=== PATIENT | male | born 1985 | race Caucasian/White ===

== ENCOUNTER 2020-02-10 13:17 | Day surgery (SDC) | payer BC ==
[2020-02-10] MEDS ORDERED: Lactated Ringers 1,000 ML IV SCH (13:45)
[2020-02-10] MEDS ORDERED: cefOXitin 2 GM in Premix Bag 1 BAG IV ONE (13:46)
--- NOTE | 2020-02-10 14:06 | PCM.SN.2 ---
- Free Text/Narrative Note: pt seen, chart reviewed; acute appendicitis, proceed to surg, rb dw pt re bleeding/infection/damage to nearby organs/postop course; pt concur and proceed ; [id number]
[2020-02-10] MEDS ORDERED: Bupivacaine 0.25%/EPINEPHrine 1:200,000 10 ML SDV ONE (14:29)
[2020-02-10] MEDS ORDERED: Octyl 2-Cyanoacrylate 1 Tube ONE (14:29)
--- NOTE | 2020-02-10 14:42 | PCM.PREANE ---
Preanesthetic Assessment - Anesthesia/Transfusion/Family Hx Anesthesia History: Prior Anesthesia Without Reaction (dental extractions only, no hx GA) Family History of Anesthesia Reaction: No Transfusion History: No Prior Transfusion(s) - Review of Systems General: No Symptoms Pulmonary: No Symptoms Cardiovascular: No Symptoms Gastrointestinal: Abdominal Pain Neurological: No Symptoms Other: Reports: None - Physical Assessment NPO Status Date: 02/09/20 Vital Signs: Last Vital Signs Temp 97.6 F 02/10/20 13:32 Pulse 86 02/10/20 14:22 Resp 18 02/10/20 14:22 BP 126/89 02/10/20 14:22 Pulse Ox 98 02/10/20 14:22 Height: 5 ft 11 in Weight: 141.974 kg ASA Class: 2E Mental Status: Alert & Oriented x3 Airway Class: Mallampati = 1 Dentition: Reports: Normal Dentition ROM/Head Extension: Full Lungs: Clear to Auscultation, Normal Respiratory Effort Cardiovascular: Regular Rate, Regular Rhythm - Allergies Allergies/Adverse Reactions: Allergies Allergy/AdvReac Type Severity Reaction Status Date / Time No Known Allergies Allergy Verified 02/10/20 14:38 - Blood Blood Available: No - Anesthesia Plan Pre-Op Medication Ordered: None - Acknowledgements Anesthesia Type Planned: General Anesthesia Pt an Appropriate Candidate for the Planned Anesthesia: Yes Alternatives and Risks of Anesthesia Discussed w Pt/Guardian: Yes Pt/Guardian Understands and Agrees with Anesthesia Plan: Yes Additional Comments: PMH: Morbid obesity (BMI=43), on zoloft PLAN: GET PreAnesthesia Questionnaire HEENT History: Reports: Other (See Below) Other HEENT History: has a dental bridge but doesn't wear, wears glasses Genitourinary History: Reports: Renal Calculus Other Genitourinary History: hx of passing 1 stone Musculoskeletal History: Reports: Fracture Other Musculoskeletal History: hx of fx finger Neurological History: Reports: Concussion, Migraines Other Neuro History: hx of migraine 5 years ago Psychiatric History: Reports: Anxiety Endocrine/Metabolic History: Reports: Obesity/BMI 30+ - Past Surgical History Head Surgeries/Procedures: Reports: None HEENT Surgical History: Reports: Oral Surgery Other HEENT Surgeries/Procedures: wisdom teeth - SUBSTANCE USE Smoking Status *Q: Current Every Day Smoker Tobacco Use Within Last Twelve Months: Snuff/Dip Recreational Drug Use History: No - HOME MEDS Home Medications: Home Meds Sertraline [Zoloft] PO DAILY 02/10/20 [History] - CURRENT (IN HOUSE) MEDS Current Meds: Current Medications Lactated Ringer's (Ringers, Lactated) 1,000 mls @ 125 mls/hr IV ASD[facility]RECTED [facility] Last Admin: 02/10/20 13:44 Dose: 125 mls/hr Discontinued Medications Bupivacaine HCl/Epinephrine Bitart (Marcaine 0.25%/Epinephrine 1:200,000) Confirm Administered Dose 20 ml .ROUTE .STK-MED ONE Stop: 02/10/20 14:30 Cefoxitin Sodium 2 gm/ Premix 50 mls @ 100 mls/hr IV ONETIME ONE Stop: 02/10/20 14:15 Octyl Cyanoacrylate (Dermabond Advance) Confirm Administered Dose 1 applic .ROUTE .STK-MED ONE Stop: 02/10/20 14:30
[2020-02-10] MEDS ORDERED: Glycopyrrolate 0.2 MG/ML SDV ONE (15:18)
[2020-02-10] MEDS ORDERED: Ketorolac 30 MG/ML SDV ONE (15:18)
[2020-02-10] MEDS ORDERED: Midazolam 1 MG/ML 2 ML SDV ONE (15:18)
[2020-02-10] MEDS ORDERED: Ondansetron 4 MG/2 ML SDV ONE (15:18)
[2020-02-10] MEDS ORDERED: Propofol 200 MG/20 ML SDV ONE (15:18)
[2020-02-10] MEDS ORDERED: Rocuronium 100 MG/10 ML Syringe ONE (15:19)
[2020-02-10] MEDS ORDERED: HYDROmorphone 2 MG/ML Syringe ONE (15:23)
[2020-02-10] MEDS ORDERED: fentaNYL 250 MCG/5 ML SDV ONE (15:25)
[2020-02-10] MEDS ORDERED: Sugammadex Sodium 200 MG/2 ML VIAL ONE (15:27)
[2020-02-10] MEDS ORDERED: Dexamethasone 4 MG/ML 5 ML MDV ONE (15:42)
[2020-02-10] MEDS ORDERED: ePHEDrine 50 MG/ML SDV ONE (16:18)
--- NOTE | 2020-02-10 17:27 | PCM.OPNOTE ---
- General Post-Op/Procedure Note Date of Surgery/Procedure: 02/10/20 Operative Procedure(s): lap appy w surgicell placement Findings: appendix dilated, w exudate, engulfed by surrounding structures; gross perf not observed;[id number] Pre Op Diagnosis: acute appy Post-Op Diagnosis: Same Anesthesia Technique: General ET Tube Primary Surgeon: Patel Aquino Pathology: sent Complications: None Condition: Stable
[2020-02-10] MEDS ORDERED: Morphine 4 MG/ML Syringe IVPUSH PRN (17:28)
[2020-02-10] MEDS ORDERED: Ondansetron 4 MG/2 ML SDV IVPUSH PRN (17:29)
--- NOTE | 2020-02-10 18:14 | PCM.POSTAN ---
POST ANESTHESIA ASSESSMENT - MENTAL STATUS Mental Status: Alert - VITAL SIGNS Vital Signs: Last Vital Signs Temp 36.6 C 02/10/20 17:24 Pulse 82 02/10/20 18:08 Resp 11 L 02/10/20 18:08 BP 121/65 02/10/20 18:08 Pulse Ox 95 02/10/20 18:08 - RESPIRATORY Respiratory Status: Respiratory Rate WNL, O2 Saturation Stable, Supplemental Oxygen Free Text/Narrative:: Very thick neck. Very probable DEZ. Will leave on O2 2-3L/min for awhile on floor. Continuous SaO2 monitoring thru night. - CARDIOVASCULAR CV Status: Pulse Rate WNL - GASTROINTESTINAL GI Status: No Symptoms - PAIN Pain Score: 1 - POST OP HYDRATION Hydration Status: Adequate & Stable - OBSERVATIONS Free Text/Narrative:: Doing well. Ready for transfer to floor.
--- NOTE | 2020-02-10 18:25 | OR ---
SURGEON: Patel Aquino MD DATE OF PROCEDURE: 02/10/2020 PREOPERATIVE DIAGNOSIS: Acute appendicitis. POSTOPERATIVE DIAGNOSIS: Acute appendicitis. PROCEDURE PERFORMED: Laparoscopic appendectomy. PRIMARY SURGEON: Patel Aquino MD COMPLICATIONS: None. FINDINGS: The appendix is purulent and severe adherence and walled off by surrounding structure and omentum such as it has been quite a while. Gross perforation is not observed. At the end of surgery, a piece of Surgicel was placed for hemostasis. DESCRIPTION OF PROCEDURE: The patient was taken to the operating room and placed in the supine position. Following induction of general endotracheal anesthesia, the patient's abdomen was prepped and draped in the sterile fashion. A time-out has been called. The patient was identified. The procedure was identified. The antibiotics were identified. The procedure then proceeded. The abdomen was prepped and draped in a standard fashion. After assessment of appropriate landmarks, a 12 millimeter trocar was inserted supraumbilically using Optiview and pneumoperitoneum was then achieved. This was followed with placement of 5 millimeter port in the right upper quadrant and another 5 millimeter port infraumbilically. The camera was inserted supraumbilical site and two laparoscopic Juliane retractors were then inserted through the other two sites. Following the cecum, the appendix was located. The appendix was then lifted up, and using a GI stapler the appendix was amputated at the base. And using the GI stapler, the mesoappendix was then amputated. The appendix was retrieved by an endoscopic bag and sent for pathologist. This was then followed by re-insertion of the camera to examine the staple line, and hemostasis. The trocars were then removed. The umbilical site was closed with 2-0 Vicryl deep stitch and 4 -0 Vicryl and Dermabond; the other 2 5 mm port sites were closed with 4-0 Vicryl and Dermabond. The patient was then awakened, extubated, and transferred to the recovery room in hemodynamically stable condition. Prior to closing, sponge count and instrument count was correct. Dr. Aquino was present throughout the whole procedure. As always, thank you for the kind referral. Intraoperative findings as dictated above. At the end of surgery, a piece of Surgicel was placed for hemostasis. JAMIE / MODL /[id number]
[2020-02-10] MEDS: Lactated Ringers 1,000 ML IV SCH (19:18)
[2020-02-10] MEDS: Acetaminophen/oxyCODONE 325-5 MG Tab PO PRN (21:40)
[2020-02-11] MEDS: Lactated Ringers 1,000 ML IV SCH (03:02)
--- NOTE | 2020-02-11 07:24 | PCM48HPAN ---
Post Anesthesia Note - EVALUATION WITHIN 48HRS OF ANESTHETIC Vital Signs in Normal Range: Yes Patient Participated in Evaluation: Yes Respiratory Function Stable: Yes Airway Patent: Yes Cardiovascular Function Stable: Yes Hydration Status Stable: Yes Pain Control Satisfactory: Yes Nausea and Vomiting Control Satisfactory: Yes Mental Status Recovered: Yes Vital Signs: Last Vital Signs Temp 36.4 C 02/11/20 03:16 Pulse 60 02/11/20 03:16 Resp 20 02/11/20 03:16 BP 107/60 02/11/20 03:16 Pulse Ox 98 02/11/20 03:16 - COMMENTS/OBSERVATIONS Free Text/Narrative:: Doing well. Up ambulating. Pain well controlled.
--- NOTE | 2020-02-11 08:43 | HP ---
DATE OF : 1985 PRIMARY CARE PHYSICIAN: Albert Crawford MD CHIEF COMPLAINT: Acute appendicitis. HISTORY OF PRESENT ILLNESS: The patient is a 35-year-ago obese, 315 pounds, gentleman complaining of a 24-hour history of general gradual onset of periumbilical pain, subsequently migrated to the right lower quadrant. Seen in emergency room at [place] and CAT scan showed dilated appendix of 12 mm with inflammatory fat, and the patient was then transferred to our facility for further management. The patient denied fever, chills, or diarrhea and last meal was this morning. PAST MEDICAL HISTORY: Significant for no diabetes, [place], CVA, or hypertension. The patient is obese, BMI probably 35 and above. PAST SURGICAL HISTORY: [place] teeth. ALLERGIES: Please refer to nursing for details. MEDICATIONS: Please refer to nursing for details. FAMILY HISTORY: No malignant hyperthermia. SOCIAL HISTORY: The patient uses chewing tobacco and no electronic tobacco. Social alcohol drinking. PHYSICAL EXAMINATION: GENERAL: A very pleasant gentleman, smiled to the doctor, and in no acute distress. HEENT: Normocephalic, atraumatic. Sclerae are anicteric. LUNGS: Clear to auscultation. HEART: Regular rate and rhythm. ABDOMEN: Soft, nondistended. No pulsating tender midline abdominal structure. No surgical scar. Exquisite tenderness on the McBurney's point. LABORATORY DATA: White count 13. CAT scan shows dilated appendix, no perforation. IMPRESSION: Acute appendicitis, will benefit from timely surgical intervention. Risks and benefits discussed with the patient; bleeding, infection, and possible damage to nearby organs and postop course and pain management. The patient concurred to proceed as planned. As always, thank you for the kind referral. JAMIE / LEE /[id number]
[2020-02-11] MEDS: Acetaminophen/oxyCODONE 325-5 MG Tab PO PRN (09:39)
== END 2020-02-11 10:55 | disposition home or self-care (01) ==
LOC: MW.ED 13:17 → MW.SDS 13:56 → MW.MS 17:47 → MW.SDS 02-11 10:55
PROVIDERS: ATTEND Surgery
DX: K35.80 Unspecified acute appendicitis (principal); F17.220 Nicotine dependence, chewing tobacco, uncomplicated; E66.01 Morbid (severe) obesity due to excess calories; Z68.41 Body mass index [BMI] 40.0-44.9, adult; F41.9 Anxiety disorder, unspecified; Z79.899 Other long term (current) drug therapy
CPT/HCPCS: 44970; A9270; C1776; J0131; J0694; J1100; J1170; J2250; J2405; J2704; J3010; J3490; J7120; 88304; J1885

== ENCOUNTER 2020-02-23 23:14 | Observation (INO) | payer BC ==
[2020-02-23] MEDS ORDERED: Sodium Chloride 0.9% 1,000 ML IV ONE ×2 (23:36→23:44)
--- NOTE | 2020-02-23 23:45 | EDM.PDOC ---
ED HPI GENERAL MEDICAL PROBLEM - General Chief Complaint: General Stated Complaint: EMS ARRIVAL - FEVER AND LOW OXYGEN Time Seen by Provider: 02/23/20 23:24 Source of Information: Reports: Patient History Limitations: Reports: No Limitations - History of Present Illness Onset: Today Location: Reports: Chest, Abdomen Severity: Moderate Improves with: Reports: None Worsens with: Reports: Breathing, Movement Associated Symptoms: Reports: Fever/Chills, Shortness of Breath. Denies: Chest Pain, Cough, Diaphoresis, Nausea/Vomiting right lower quad Pain Score (Numeric/FACES): 8 - Related Data Allergies Allergy/AdvReac Type Severity Reaction Status Date / Time No Known Allergies Allergy Verified 02/24/20 03:48 Home Meds: Home Meds Sertraline [Zoloft] PO DAILY 02/10/20 [History] Past Medical History HEENT History: Reports: Other (See Below) Other HEENT History: has a dental bridge but doesn't wear, wears glasses Genitourinary History: Reports: Renal Calculus Other Genitourinary History: hx of passing 1 stone Musculoskeletal History: Reports: Fracture Other Musculoskeletal History: hx of fx finger Neurological History: Reports: Concussion, Migraines Other Neuro History: hx of migraine 5 years ago Psychiatric History: Reports: Anxiety Endocrine/Metabolic History: Reports: Obesity/BMI 30+ - Past Surgical History Head Surgeries/Procedures: Reports: None HEENT Surgical History: Reports: Oral Surgery Other HEENT Surgeries/Procedures: wisdom teeth Social & Family History - Family History Family Medical History: Noncontributory ED ROS GENERAL - Review of Systems Review Of Systems: Comprehensive ROS is negative, except as noted in HPI. ED EXAM, GENERAL - Physical Exam Exam: See Below Exam Limited By: No Limitations General Appearance: Alert, No Apparent Distress Head: Atraumatic, Normocephalic Neck: Normal Inspection, Supple Respiratory/Chest: No Respiratory Distress, Lungs Clear, Normal Breath Sounds, No Accessory Muscle Use. No: Rhonchi, Wheezing Cardiovascular: Regular Rate, Rhythm, No JVD GI/Abdominal: Normal Bowel Sounds, Tender. No: Guarding Back Exam: Normal Inspection Extremities: Normal Inspection Neurological: Alert, Oriented Psychiatric: Normal Affect Skin Exam: Warm, Dry Course - Vital Signs Text/Narrative:: Patient's lab work is unremarkable. Chest x-ray shows some atelectasis or small amount of infiltrate on his left base. Patient's CT scan of his abdomen just show postoperative changes. It does not show clear pneumonia only atelectasis bilaterally in the lungs bases. Patient remains hypoxic he was 88% on room air. He did have a fever of 103 earlier. I have started him on Levaquin. I feel that he most likely has an early pneumonia. We have his medical records from [facility] earlier today he was satting 99% on room air. Patient was discussed with Dr. Kim who recommended that the hospitalist admit him at this time. He will let Dr. Silva know that he is a patient. Patient is aware of this plan. Last Recorded V/S: Last Vital Signs Temp 36.9 C 02/24/20 03:45 Pulse 82 02/24/20 03:45 Resp 20 02/24/20 03:45 BP 123/66 02/24/20 03:45 Pulse Ox 97 02/24/20 03:45 - Orders/Labs/Meds Orders: Active Orders 24 hr Category Date Time Status CULTURE BLOOD [BC] Stat Lab 02/23/20 23:35 Ordered CULTURE BLOOD [BC] Stat Lab 02/23/20 23:45 Received Sodium Chloride 0.9% [Normal Saline] 1,000 ml Med 02/24/20 01:42 Active IV .Bolus Blood Culture x2 Reflex Set [OM.PC] Stat Oth 02/23/20 23:35 Ordered Medication Orders Sodium Chloride (Normal Saline) 1,000 mls @ 250 mls/hr IV .Bolus ONE Stop: 02/24/20 05:41 Last Admin: 02/24/20 01:48 Dose: 250 mls/hr Labs: Laboratory Tests 02/23/20 02/23/20 02/23/20 Range/Units 23:26 23:26 23:26 WBC 11.31 H (4.0-11.0) K/uL RBC 4.96 (4.50-5.90) M/uL Hgb 14.9 (13.0-17.0) g/dL Hct 45.8 (38.0-50.0) % MCV 92.3 (80.0-98.0) fL MCH 30.0 (27.0-32.0) pg MCHC 32.5 (31.0-37.0) g/dL RDW Std Deviation 46.0 (28.0-62.0) fl RDW Coeff of Demarco 14 (11.0-15.0) % Plt Count 234 (150-400) K/uL MPV 11.00 (7.40-12.00) fL Neut % (Auto) 87.4 H (48.0-80.0) % Lymph % (Auto) 6.2 L (16.0-40.0) % [place] % (Auto) 6.3 (0.0-15.0) % Eos % (Auto) 0.0 (0.0-7.0) % Baso % (Auto) 0.1 (0.0-1.5) % Neut # (Auto) 9.9 H (1.4-5.7) K/uL Lymph # (Auto) 0.7 (0.6-2.4) K/uL [place] # (Auto) 0.7 (0.0-0.8) K/uL Eos # (Auto) 0.0 (0.0-0.7) K/uL Baso # (Auto) 0.0 (0.0-0.1) K/uL Nucleated RBC % 0.0 /100WBC Nucleated RBCs # 0 K/uL Lactate 1.8 (0.20-2.00) mmol/L Sodium 137 (136-148) mmol/L Potassium 4.1 (3.5-5.1) mmol/L Chloride 100 (98-107) mmol/L Carbon Dioxide 29.2 (21.0-32.0) mmol/L BUN 16 (7.0-18.0) mg/dL Creatinine 1.7 H (0.8-1.3) mg/dL Est Cr Clr Drug Dosing 64.60 mL/min Estimated GFR (MDRD) 46.1 ml/min Glucose 134 H (74-106) mg/dL Calcium 8.8 (8.5-10.1) mg/dL Total Bilirubin 1.1 H (0.2-1.0) mg/dL AST 16 (15-37) IU/L ALT 36 (14-63) IU/L Alkaline Phosphatase 80 (46-116) U/L Total Protein 7.7 (6.4-8.2) g/dL Albumin 3.3 L (3.4-5.0) g/dL Globulin 4.4 H (2.6-4.0) g/dL Albumin/Globulin Ratio 0.8 L (0.9-1.6) Urine Color Urine Appearance Urine pH (5.0-8.0) Ur Specific [place] (1.001-1.035) Urine Protein (NEGATIVE) mg/dL Urine Glucose (UA) (NEGATIVE) mg/dL Urine Ketones (NEGATIVE) mg/dL Urine Occult Blood (NEGATIVE) Urine Nitrite (NEGATIVE) Urine Bilirubin (NEGATIVE) Urine Urobilinogen (<2.0) EU/dL Ur Leukocyte Esterase (NEGATIVE) Urine RBC (0-2/HPF) Urine WBC (0-5/HPF) Ur Epithelial Cells (NONE-FEW) Urine Bacteria (NEGATIVE) 02/24/20 Range/Units 01:13 WBC (4.0-11.0) K/uL RBC (4.50-5.90) M/uL Hgb (13.0-17.0) g/dL Hct (38.0-50.0) % MCV (80.0-98.0) fL MCH (27.0-32.0) pg MCHC (31.0-37.0) g/dL RDW Std Deviation (28.0-62.0) fl RDW Coeff of Demarco (11.0-15.0) % Plt Count (150-400) K/uL MPV (7.40-12.00) fL Neut % (Auto) (48.0-80.0) % Lymph % (Auto) (16.0-40.0) % [place] % (Auto) (0.0-15.0) % Eos % (Auto) (0.0-7.0) % Baso % (Auto) (0.0-1.5) % Neut # (Auto) (1.4-5.7) K/uL Lymph # (Auto) (0.6-2.4) K/uL [place] # (Auto) (0.0-0.8) K/uL Eos # (Auto) (0.0-0.7) K/uL Baso # (Auto) (0.0-0.1) K/uL Nucleated RBC % /100WBC Nucleated RBCs # K/uL Lactate (0.20-2.00) mmol/L Sodium (136-148) mmol/L Potassium (3.5-5.1) mmol/L Chloride (98-107) mmol/L Carbon Dioxide (21.0-32.0) mmol/L BUN (7.0-18.0) mg/dL Creatinine (0.8-1.3) mg/dL Est Cr Clr Drug Dosing mL/min Estimated GFR (MDRD) ml/min Glucose (74-106) mg/dL Calcium (8.5-10.1) mg/dL Total Bilirubin (0.2-1.0) mg/dL AST (15-37) IU/L ALT (14-63) IU/L Alkaline Phosphatase (46-116) U/L Total Protein (6.4-8.2) g/dL Albumin (3.4-5.0) g/dL Globulin (2.6-4.0) g/dL Albumin/Globulin Ratio (0.9-1.6) Urine Color DARK YELLOW Urine Appearance CLEAR Urine pH 6.0 (5.0-8.0) Ur Specific [place] 1.025 (1.001-1.035) Urine Protein 30 H (NEGATIVE) mg/dL Urine Glucose (UA) NEGATIVE (NEGATIVE) mg/dL Urine Ketones NEGATIVE (NEGATIVE) mg/dL Urine Occult Blood TRACE-INTACT H (NEGATIVE) Urine Nitrite NEGATIVE (NEGATIVE) Urine Bilirubin NEGATIVE (NEGATIVE) Urine Urobilinogen 1.0 (<2.0) EU/dL Ur Leukocyte Esterase NEGATIVE (NEGATIVE) Urine RBC 0-1 (0-2/HPF) Urine WBC 0-1 (0-5/HPF) Ur Epithelial Cells RARE (NONE-FEW) Urine Bacteria RARE (NEGATIVE) Meds: Medications Generic Name Dose Route Start Last Admin Trade Name Freq PRN Reason Stop Dose Admin Sodium Chloride 1,000 mls @ 250 mls/hr 02/24/20 01:42 02/24/20 01:48 Normal Saline IV 02/24/20 05:41 250 mls/hr .Bolus ONE Administration Discontinued Medications Generic Name Dose Route Start Last Admin Trade Name Freq PRN Reason Stop Dose Admin Hydromorphone HCl 1 mg 02/24/20 00:14 02/24/20 00:31 Dilaudid IVPUSH 02/24/20 00:15 1 mg ONETIME ONE Administration Sodium Chloride 1,000 mls @ 999 mls/hr 02/23/20 23:36 02/23/20 23:47 Normal Saline IV 02/24/20 00:36 999 mls/hr .BOLUS ONE Administration Sodium Chloride 1,000 mls @ 999 mls/hr 02/23/20 23:44 02/23/20 23:48 Normal Saline IV 02/24/20 00:44 999 mls/hr .Bolus ONE Administration Levofloxacin/Dextrose 500 mg/ 100 mls @ 100 mls/hr 02/24/20 00:45 02/24/20 01 :48 Premix IV 02/24/20 01:44 100 mls/hr ONETIME ONE Administration Iopamidol 100 ml 02/24/20 01:13 02/24/20 01:14 Isovue-370 (76%) IVPUSH 02/24/20 01:14 100 ml ONETIME STA Administration Departure - Departure Time of Disposition: 03:55 Disposition: Refer to Observation Condition: Fair Clinical Impression: Pneumonia, Hypoxia, Fever - Discharge Information Sepsis Event Note - Evaluation Sepsis Screening Result: No Definite Risk - Focused Exam Vital Signs: Vital Signs Temp Pulse Resp BP Pulse Ox 02/24/20 01:59 37.8 C 94 20 143/97 H 97 02/24/20 01:30 93 18 137/78 93 L 02/24/20 01:00 98 20 131/82 95 02/24/20 00:29 97 20 125/77 95 02/23/20 23:30 37.4 C 111 H 16 132/86 88 L Date Exam was Performed: 02/24/20 Time Exam was Performed: 03:51 - My Orders Last 24 Hours: My Active Orders 02/23/20 23:35 CULTURE BLOOD [BC] Stat Blood Culture x2 Reflex Set [OM.PC] Stat 02/23/20 23:45 CULTURE BLOOD [BC] Stat 02/24/20 01:42 Sodium Chloride 0.9% [Normal Saline] 1,000 ml IV .Bolus - Assessment/Plan Last 24 Hours: My Active Orders 02/23/20 23:35 CULTURE BLOOD [BC] Stat Blood Culture x2 Reflex Set [OM.PC] Stat 02/23/20 23:45 CULTURE BLOOD [BC] Stat 02/24/20 01:42 Sodium Chloride 0.9% [Normal Saline] 1,000 ml IV .Bolus
[2020-02-23 23:57] LABS: CARBON DIOXIDE,CO2 29.2 mmol/L (21.0-32.0); POTASSIUM,K 4.1 mmol/L (3.5-5.1)
[2020-02-24] MEDS ORDERED: HYDROmorphone 1 MG/ML Syringe IVPUSH ONE (00:14)
--- NOTE | 2020-02-24 00:41 | CR ---
INDICATION: Chest pain and shortness of breath. TECHNIQUE: Chest 1 view COMPARISON: None FINDINGS: Cardiovascular and mediastinum: Heart size and vasculature are normal in caliber and appearance. Lungs and pleural spaces: Minimal atelectasis favored over infiltrate in the left lung base. Lungs and pleural spaces otherwise clear. Bones and soft tissues: No significant findings. IMPRESSION: Mild atelectasis favored over infiltrate in the left lung base. Remainder of the exam is unremarkable. Dictated by Johnnie Cheung MD @ Feb 24 2020 12:36AM Signed by Dr. Johnnie Cheung @ Feb 24 2020 12:39AM
[2020-02-24] MEDS ORDERED: Levofloxacin/Dextrose 5%-Water 500 MG in Premix Bag 1 BAG IV ONE (00:45)
[2020-02-24] MEDS ORDERED: Iopamidol 755 Mg/ML 100 ML Bottle IVPUSH STA (01:13)
--- NOTE | 2020-02-24 01:28 | CT ---
INDICATION: Abdominal pain. Patient is status post appendectomy 1 week prior with interval abscess development and drain placement earlier today. TECHNIQUE: Axial images were obtained from the diaphragm to the pubic symphysis. Reformats were obtained in the coronal and sagittal plane. IV Contrast: 100 cc Isovue 370 Oral Contrast: None COMPARISON: None. FINDINGS: Lower chest: Bibasilar dependent atelectasis. Liver: Unremarkable. Normal in size and attenuation. No masses. Gallbladder and bile ducts: Unremarkable. No stones or inflammation. No biliary dilatation. Spleen: Unremarkable. Normal in size without mass. Pancreas: Unremarkable. No mass or inflammation. Adrenal glands: Unremarkable. No nodules. Kidneys: Unremarkable. No masses, stones, or hydronephrosis. Vasculature: Unremarkable. GI tract: There is a right lower quadrant pigtail catheter with the tip just inferior to the cecal tip. There is heterogeneous fat stranding in this area, suture line as well as some intermediate density fluid within the adjacent mesentery as well as extending into the pelvis consistent with some hematoma. No significant residual rim enhancing fluid seen surrounding the drain. Small pneumoperitoneum. No dilated loops of large or small intestine. Skin sheela near the umbilicus with a fat containing umbilical hernia. Mesenteric lymph nodes measure up to 14 millimeters, presumed reactive. Pelvis: Unremarkable. Bones: Unremarkable for age. IMPRESSION: 1. Right lower quadrant pigtail catheter inferior to the cecal tip without significant rim enhancing collection around the catheter. 2. Small hemoperitoneum within the pelvis. 3. Small pneumoperitoneum, presumed secondary to catheter placement. 4. Mesenteric lymphadenopathy, presumed reactive. Please note that all CT scans at this facility use dose modulation, iterative reconstruction, and/or weight-based dosing when appropriate to reduce radiation dose to as low as reasonably achievable. Dictated by Wallace Aleman MD @ Feb 24 2020 1:19AM Signed by Dr. Wallace Aleman @ Feb 24 2020 1:27AM
[2020-02-24] MEDS ORDERED: Sodium Chloride 0.9% 1,000 ML IV ONE (01:42)
[2020-02-24] MEDS ORDERED: Morphine 2 MG/ML Syringe IVPUSH PRN (04:53)
[2020-02-24] MEDS ORDERED: Piperacillin/Tazobactam 3.375 GM in Sodium Chloride 0.9% 50 ML IV SCH (05:00)
[2020-02-24] MEDS: Lactated Ringers 1,000 ML IV SCH ×2 (05:14→15:52)
[2020-02-24] MEDS: Acetaminophen 500 MG Tab PO PRN (05:57)
--- NOTE | 2020-02-24 07:52 | PCM.HP.2 ---
H&P History of Present Illness - General Date of Service: 02/24/20 Admit Problem/Dx: Admission Diagnosis/Problem Admission Diagnosis/Problem Pneumonia - History of Present Illness Initial Comments - Free Text/Narative: The patient is a 34 year old male who presented to the ER last night with shortness of breath and fever. The patient underwent laparoscopic appendectomy at [facility] 2 weeks ago. He then developed abdominal pain a few days ago, presented to [place], was admitted and they found abscess. They transferred him to [place] where a drain was placed yesterday. When he arrived back home he developed shortness of breath and fever. Denies sore throat, nasal congestion, chest pain, nausea/vomiting, diarrhea. Hasn't eaten anything in 3 days, passing gas but no bowel movement. In the ER, he was hypoxic at 88%. Lab work showed WBC of 11.3, lactate of 1.8 but elevated creatinine. He was negative for COVID. UA showed no infection but did have protein and blood. CXR showed mild atelectasis of left lung favored over infiltrate. A CT ab/pelvis was obtained which showed small pneumoperitoneum with catheter in place, and reactive mesenteric lymphadenopathy. The ER contacted Dr. Kim, general surgery, who recommended admission to hospital service and he would make Dr. Aquino aware of the patient. In the ER he received Levaquin, pain medication, and IVF. PCP- in [place] right lower quad Pain Score (Numeric/FACES): 8 Right Abdomen Pain Score (Numeric/FACES): 8 - Related Data Allergies/Adverse Reactions: Allergies Allergy/AdvReac Type Severity Reaction Status Date / Time No Known Allergies Allergy Verified 02/24/20 03:48 Home Medications: Home Meds Sertraline [Zoloft] PO DAILY 02/10/20 [History] Past Medical History HEENT History: Reports: Other (See Below) Other HEENT History: has a dental bridge but doesn't wear, wears glasses Cardiovascular History: Reports: None Respiratory History: Reports: None Gastrointestinal History: Reports: None Genitourinary History: Reports: Renal Calculus Other Genitourinary History: hx of passing 1 stone Musculoskeletal History: Reports: Fracture Other Musculoskeletal History: hx of fx finger Neurological History: Reports: Concussion, Migraines Other Neuro History: hx of migraine 5 years ago Psychiatric History: Reports: Anxiety Endocrine/Metabolic History: Reports: Obesity/BMI 30+ - Infectious Disease History Infectious Disease History: Reports: Chicken Pox - Past Surgical History Head Surgeries/Procedures: Reports: None HEENT Surgical History: Reports: Oral Surgery Other HEENT Surgeries/Procedures: wisdom teeth Social & Family History - Family History Family Medical History: Noncontributory - Tobacco Use Smoking Status *Q: Never Smoker - Caffeine Use Caffeine Use: Reports: None - Recreational Drug Use Recreational Drug Use: No H&P Review of Systems - Review of Systems: Review Of Systems: See Below General: Reports: Fever Pulmonary: Reports: Shortness of Breath. Denies: Cough Cardiovascular: Denies: Chest Pain Gastrointestinal: Reports: Abdominal Pain Genitourinary: Reports: No Symptoms Musculoskeletal: Reports: No Symptoms Skin: Reports: No Symptoms Psychiatric: Reports: No Symptoms Neurological: Reports: No Symptoms Hematologic/Lymphatic: Reports: No Symptoms Immunologic: Reports: No Symptoms Exam - Exam Exam: See Below - Vital Signs Vital Signs: Last Vital Signs Temp 98.4 F 02/24/20 03:45 Pulse 82 02/24/20 03:45 Resp 20 02/24/20 03:45 BP 123/66 02/24/20 03:45 Pulse Ox 97 02/24/20 03:45 Weight: 139.6 kg - Exam Quality Assessment: Supplemental Oxygen General: Alert, Oriented, Cooperative Lungs: Clear to Auscultation, Normal Respiratory Effort Cardiovascular: Regular Rate, Regular Rhythm GI/Abdominal Exam: Normal Bowel Sounds, Soft, Other (tender RLQ around drain placement) Extremities: No Pedal Edema Skin: Warm, Dry, Intact Psychiatric: Alert, Normal Affect, Normal Mood - Patient Data Lab Results Last 24 hrs: Laboratory Results - last 24 hr 02/23/20 02/23/20 02/23/20 Range/Units 23:26 23:26 23:26 WBC 11.31 H (4.0-11.0) K/uL RBC 4.96 (4.50-5.90) M/uL Hgb 14.9 (13.0-17.0) g/dL Hct 45.8 (38.0-50.0) % MCV 92.3 (80.0-98.0) fL MCH 30.0 (27.0-32.0) pg MCHC 32.5 (31.0-37.0) g/dL RDW Std Deviation 46.0 (28.0-62.0) fl RDW Coeff of Demarco 14 (11.0-15.0) % Plt Count 234 (150-400) K/uL MPV 11.00 (7.40-12.00) fL Neut % (Auto) 87.4 H (48.0-80.0) % Lymph % (Auto) 6.2 L (16.0-40.0) % [place] % (Auto) 6.3 (0.0-15.0) % Eos % (Auto) 0.0 (0.0-7.0) % Baso % (Auto) 0.1 (0.0-1.5) % Neut # (Auto) 9.9 H (1.4-5.7) K/uL Lymph # (Auto) 0.7 (0.6-2.4) K/uL [place] # (Auto) 0.7 (0.0-0.8) K/uL Eos # (Auto) 0.0 (0.0-0.7) K/uL Baso # (Auto) 0.0 (0.0-0.1) K/uL Nucleated RBC % 0.0 /100WBC Nucleated RBCs # 0 K/uL Lactate 1.8 (0.20-2.00) mmol/L Sodium 137 (136-148) mmol/L Potassium 4.1 (3.5-5.1) mmol/L Chloride 100 (98-107) mmol/L Carbon Dioxide 29.2 (21.0-32.0) mmol/L BUN 16 (7.0-18.0) mg/dL Creatinine 1.7 H (0.8-1.3) mg/dL Est Cr Clr Drug Dosing 64.60 mL/min Estimated GFR (MDRD) 46.1 ml/min Glucose 134 H (74-106) mg/dL Calcium 8.8 (8.5-10.1) mg/dL Total Bilirubin 1.1 H (0.2-1.0) mg/dL AST 16 (15-37) IU/L ALT 36 (14-63) IU/L Alkaline Phosphatase 80 (46-116) U/L Total Protein 7.7 (6.4-8.2) g/dL Albumin 3.3 L (3.4-5.0) g/dL Globulin 4.4 H (2.6-4.0) g/dL Albumin/Globulin Ratio 0.8 L (0.9-1.6) Urine Color Urine Appearance Urine pH (5.0-8.0) Ur Specific [place] (1.001-1.035) Urine Protein (NEGATIVE) mg/dL Urine Glucose (UA) (NEGATIVE) mg/dL Urine Ketones (NEGATIVE) mg/dL Urine Occult Blood (NEGATIVE) Urine Nitrite (NEGATIVE) Urine Bilirubin (NEGATIVE) Urine Urobilinogen (<2.0) EU/dL Ur Leukocyte Esterase (NEGATIVE) Urine RBC (0-2/HPF) Urine WBC (0-5/HPF) Ur Epithelial Cells (NONE-FEW) Urine Bacteria (NEGATIVE) SARS-CoV-2 RNA (RT-PCR) (NEGATIVE) 02/24/20 02/24/20 02/24/20 Range/Units 01:13 03:08 07:28 WBC 10.52 (4.0-11.0) K/uL RBC 4.28 L (4.50-5.90) M/uL Hgb 12.7 L (13.0-17.0) g/dL Hct 39.7 (38.0-50.0) % MCV 92.8 (80.0-98.0) fL MCH 29.7 (27.0-32.0) pg MCHC 32.0 (31.0-37.0) g/dL RDW Std Deviation 46.5 (28.0-62.0) fl RDW Coeff of Demarco 14 (11.0-15.0) % Plt Count 201 (150-400) K/uL MPV 10.90 (7.40-12.00) fL Neut % (Auto) 82.5 H (48.0-80.0) % Lymph % (Auto) 9.2 L (16.0-40.0) % [place] % (Auto) 7.9 (0.0-15.0) % Eos % (Auto) 0.3 (0.0-7.0) % Baso % (Auto) 0.1 (0.0-1.5) % Neut # (Auto) 8.7 H (1.4-5.7) K/uL Lymph # (Auto) 1.0 (0.6-2.4) K/uL [place] # (Auto) 0.8 (0.0-0.8) K/uL Eos # (Auto) 0.0 (0.0-0.7) K/uL Baso # (Auto) 0.0 (0.0-0.1) K/uL Nucleated RBC % 0.0 /100WBC Nucleated RBCs # 0 K/uL Lactate (0.20-2.00) mmol/L Sodium (136-148) mmol/L Potassium (3.5-5.1) mmol/L Chloride (98-107) mmol/L Carbon Dioxide (21.0-32.0) mmol/L BUN (7.0-18.0) mg/dL Creatinine (0.8-1.3) mg/dL Est Cr Clr Drug Dosing mL/min Estimated GFR (MDRD) ml/min Glucose (74-106) mg/dL Calcium (8.5-10.1) mg/dL Total Bilirubin (0.2-1.0) mg/dL AST (15-37) IU/L ALT (14-63) IU/L Alkaline Phosphatase (46-116) U/L Total Protein (6.4-8.2) g/dL Albumin (3.4-5.0) g/dL Globulin (2.6-4.0) g/dL Albumin/Globulin Ratio (0.9-1.6) Urine Color DARK YELLOW Urine Appearance CLEAR Urine pH 6.0 (5.0-8.0) Ur Specific [place] 1.025 (1.001-1.035) Urine Protein 30 H (NEGATIVE) mg/dL Urine Glucose (UA) NEGATIVE (NEGATIVE) mg/dL Urine Ketones NEGATIVE (NEGATIVE) mg/dL Urine Occult Blood TRACE-INTACT H (NEGATIVE) Urine Nitrite NEGATIVE (NEGATIVE) Urine Bilirubin NEGATIVE (NEGATIVE) Urine Urobilinogen 1.0 (<2.0) EU/dL Ur Leukocyte Esterase NEGATIVE (NEGATIVE) Urine RBC 0-1 (0-2/HPF) Urine WBC 0-1 (0-5/HPF) Ur Epithelial Cells RARE (NONE-FEW) Urine Bacteria RARE (NEGATIVE) SARS-CoV-2 RNA (RT-PCR) NEGATIVE (NEGATIVE) Result Diagrams: 02/24/20 07:28 02/24/20 07:28 Sepsis Event Note - Evaluation Sepsis Screening Result: No Definite Risk - Focused Exam Vital Signs: Vital Signs Temp Pulse Resp BP Pulse Ox 02/24/20 03:45 98.4 F 82 20 123/66 97 02/24/20 03:19 89 18 120/74 94 L 02/24/20 03:01 87 18 125/77 95 02/24/20 02:23 99.6 F 96 22 H 119/67 95 02/24/20 01:59 100.0 F 94 20 143/97 H 97 02/24/20 01:30 93 18 137/78 93 L 02/24/20 01:00 98 20 131/82 95 02/24/20 00:29 97 20 125/77 95 02/23/20 23:30 99.4 F 111 H 16 132/86 88 L Date Exam was Performed: 02/24/20 Time Exam was Performed: 10:34 Problem List Initiated/Reviewed/Updated: Yes Orders Last 24hrs: Active Orders 24 hr Category Date Time Status Admission Status [Patient Status] [ADT] Stat ADT 02/24/20 02:19 Active Activity as Tolerated [RC] .Routine Care 02/24/20 04:50 Active Incentive Spirometry [RT Incentive Spirometry] [RC] Care 02/24/20 04:51 Active Q1HWA Oxygen Therapy [RC] PRN Care 02/24/20 04:50 Active Pulse Oximetry [RC] PRN Care 02/24/20 04:50 Active Telemetry Monitoring [Cardiac Monitoring] [RC] Q8H Care 02/24/20 02:30 Active Vital Signs [RC] Q4H Care 02/24/20 04:49 Active Soft Diet [DIET] Diet 02/24/20 Breakfast Active COMPREHENSIVE METABOLIC PN,CMP [CHEM] Urgent Lab 02/24/20 07:28 Received CULTURE BLOOD [BC] Stat Lab 02/23/20 23:35 Ordered CULTURE BLOOD [BC] Stat Lab 02/23/20 23:45 Received VANCOMYCIN TROUGH [CHEM] Routine Lab 02/25/20 16:30 Ordered Acetaminophen [Tylenol Extra Strength] Med 02/24/20 04:54 Active 500 mg PO Q6H PRN Lactated Ringers [Ringers, Lactated] 1,000 ml Med 02/24/20 05:00 Active IV ASDIRECTED Morphine Med 02/24/20 04:53 Active 1 mg IVPUSH Q4H PRN Piperacillin/Tazobactam [Piperacil-Tazobact] 3.375 gm Med 02/24/20 11:00 Active Sodium Chloride 0.9% [Normal Saline] 50 ml IV Q6H VANCOmycin/Water for INJ (PEG) [VANCOmycin 1.5 GM/300 Med 02/24/20 17:00 Active ML Premix] 300 ml IV Q12H Blood Culture x2 Reflex Set [OM.PC] Stat Oth 02/23/20 23:35 Ordered Medication Orders Acetaminophen (Tylenol Extra Strength) 500 mg PO Q6H PRN PRN Reason: Pain/Fever Last Admin: 02/24/20 05:57 Dose: 500 mg Lactated Ringer's (Ringers, Lactated) 1,000 mls @ 125 mls/hr IV ASDIRECTED EDUIN Last Admin: 02/24/20 05:14 Dose: 125 mls/hr Piperacillin Sod/Tazobactam (Sod 3.375 gm/ Sodium Chloride) 50 mls @ 100 mls/ hr IV Q6H EDUIN Vancomycin HCl (Vancomycin 1.5 Gm/300 Ml Premix) 300 mls @ 200 mls/hr IV Q12H EDUIN Morphine Sulfate (Morphine) 1 mg IVPUSH Q4H PRN PRN Reason: Pain Assessment/Plan Comment:: 1. Admit for observation 2. Code status- Full 3. Vitals per routine 4. I/Os per routine 5. Diet- soft 6. DVT prophylaxis with SCDs 7. Acute hypoxic respiratory failure secondary to healthcare associated pneumonia- suspect gram negative infection- white count resolved. Will treat with Vanco, Levaquin, and Zosyn. He has LR at 125 cc/hr. Blood culture pending. Javon prn. Encourage IS. Will get CTA to rule out PE and further evaluate pneumonia. 8. Recent abdominal surgery- catheter placed for abscess s/p appendectomy- patient on antibiotics, drain has serosanguineous fluid, general surgery aware. 9. GEOFF- resolved on IVF
[2020-02-24] MEDS ORDERED: Albuterol/Ipratropium 3.0-0.5 MG/3 ML Neb Soln NEB PRN (08:10)
[2020-02-24 08:20] LABS: BLOOD UREA NITROGEN,BUN 15 mg/dL (7.0-18.0); CARBON DIOXIDE,CO2 26.7 mmol/L (21.0-32.0); CHLORIDE,CL 104 mmol/L (98-107); GLUCOSE RANDOM 111 mg/dL (74-106); POTASSIUM,K 4.3 mmol/L (3.5-5.1); SODIUM,NA 138 mmol/L (136-148)
[2020-02-24] MEDS: Piperacillin/Tazobactam 3.375 GM in Sodium Chloride 0.9% 50 ML IV SCH ×3 (11:00→23:58)
[2020-02-24 11:21] LABS: HEMOGLOBIN A1C 5.8 % (4.5-6.2)
[2020-02-24] MEDS ORDERED: Iopamidol 755 MG/ML 200 ML Multipack Bottle IVPUSH STA (11:54)
--- NOTE | 2020-02-24 12:22 | CT ---
CT chest Technique: Multiple axial sections through the chest were obtained. Intravenous contrast was utilized. Study performed as pulmonary angiogram protocol. Findings: Significant artifact is noted from patient body habitus which diminishes details. Findings: Pulmonary arteries show no discrete filling defects within the main or segmental branches. Distal subsegmental pulmonary emboli could easily be missed. Aorta shows no aneurysm. Mediastinum and hilar region show no adenopathy or mass. Areas of atelectasis are scattered within the right upper lung as well as within both lung bases. Difficult to exclude bibasilar pneumonia. No pleural effusions are seen. Bone window settings shows no acute osseous finding. Impression: 1. Slightly suboptimal study as described above. 2. No findings of pulmonary embolism within the main or segmental branches. Smaller distal subsegmental pulmonary emboli could be missed. 3. Scattered areas of atelectasis as described above. Difficult to exclude bibasilar pneumonia. Diagnostic code #3 This report was dictated in MDT
--- NOTE | 2020-02-24 15:30 | PCM.SN.2 ---
- Free Text/Narrative Note: Pt seen, chart reviewed; cx dictated; broadband gram negative iv abx, regular diet; add toradol for pain management; [id number]
[2020-02-24] MEDS: Ketorolac 30 MG/ML SDV IVPUSH PRN (15:51)
[2020-02-24] MEDS ORDERED: HYDROmorphone 2 MG Tab PO PRN (16:26)
--- NOTE | 2020-02-24 22:24 | CONS ---
DATE OF CONSULTATION: 02/24/2020 DATE OF : 1985 PRIMARY CARE PHYSICIAN: Tereso Case Jr, PA-C HISTORY OF PRESENT ILLNESS: The patient is a 34-year-old morbidly obese gentleman, BMI of 42.6, and seen in emergency room for shortness of breath and fever. The patient had uneventful laparoscopic appendectomy done on 02/09, the patient doing well and was discharged home on 02/10. The patient remarked that he was doing fine until 2 days ago and he developed abdominal pain, seen in [place], that is why he was referred to us, and over there CAT scan shows some collection, about 4 cm collection, and subsequently patient went to [place], got a drain placed by Interventional Radiology, and after drain placement the patient remarked that difficult to breathe and abdominal pain and was admitted for further management. The patient was seen this morning after consult by Medical Service. The patient remarked the pain is from the drain they placed, is not from the previous appendicitis or from the previous appendectomy. He remarked the pain is on the skin. Denies short of breath right now. He is on room air. ALLERGIES: Please refer to nursing for details. MEDICATION: Please refer to nursing for details. PAST MEDICAL HISTORY: Significant for no diabetes, DE, CVA, hypertension. The patient is morbidly obese, BMI is 42.6. PAST SURGICAL HISTORY: [place] teeth. FAMILY HISTORY: No malignant hyperthermia. SOCIAL HISTORY: The patient uses chewing tobacco and social alcohol drinking. PHYSICAL EXAMINATION: GENERAL: A very comfortable gentleman lying in bed, on room air. VITAL SIGNS: Saturation 94, respiratory rate of 19, and afebrile, temperature 98.8. HEENT: Normocephalic and atraumatic. Sclerae anicteric. LUNGS: Clear to auscultation. HEART: Regular rate and rhythm. ABDOMEN: Soft, nondistended. No pulsating tender midline abdominal structure. The drain output is completely serosanguineous, not 1 drop of purulence. It is completely clear, straw yellow. IMPRESSION: Status post Interventional Radiology for collection, and all this information per family and per Carolin Schulz. I would like to request the ER record from [place] yesterday, February 23, 2020, and the interventional radiology procedure note from [facility] yesterday. Depending on this 2 pieces of information in order to understand more about the situation, we will tentatively put the patient on broadband Gram-negative antibiotic, Zosyn would be good, or Mefoxin or whatever broadband Gram-negative they were using. The patient can have regular diet. Of note, on admission I appreciate the Medical and the ER managing this patient, and the COVID-19 virus lab was negative, and CAT scan for PE was negative. I will follow the patient with you. JAMIE / LEE /[id number]
[2020-02-25] MEDS: Acetaminophen 500 MG Tab PO PRN (01:24)
[2020-02-25] MEDS ORDERED: Levofloxacin/Dextrose 5%-Water 750 MG in Premix Bag 1 BAG IV SCH (01:30)
[2020-02-25] MEDS: Piperacillin/Tazobactam 3.375 GM in Sodium Chloride 0.9% 50 ML IV SCH (05:00)
[2020-02-25 05:40] LABS: BLOOD UREA NITROGEN,BUN 15 mg/dL (7.0-18.0); CARBON DIOXIDE,CO2 25.7 mmol/L (21.0-32.0); CHLORIDE,CL 103 mmol/L (98-107); GLUCOSE RANDOM 99 mg/dL (74-106); POTASSIUM,K 3.7 mmol/L (3.5-5.1); SODIUM,NA 137 mmol/L (136-148)
[2020-02-25] MEDS: Ketorolac 30 MG/ML SDV IVPUSH PRN ×2 (07:33→17:06)
--- NOTE | 2020-02-25 10:16 | PCM.SURGPN ---
- General Info Date of Service: 02/25/20 Functional Status: Reports: Pain Controlled (on reg diet, patricio good; julio output 40 , clear straw yellow) - Patient Data Vitals - Most Recent: Last Vital Signs Temp 98.4 F 02/25/20 08:00 Pulse 88 02/25/20 08:00 Resp 18 02/25/20 08:00 BP 113/70 02/25/20 08:00 Pulse Ox 94 L 02/25/20 08:00 Weight - Most Recent: 307 lb 12.245 oz I&O - Last 24 Hours: Intake & Output 02/24/20 02/25/20 02/25/20 22:59 06:59 14:59 Intake Total 3005 2148 Output Total 855 7 Balance 2150 2141 Lab Results Last 24 Hrs: Laboratory Results - last 24 hr 02/24/20 02/25/20 02/25/20 Range/Units 07:28 04:55 04:55 WBC 10.39 (4.0-11.0) K/uL RBC 4.07 L (4.50-5.90) M/uL Hgb 11.9 L (13.0-17.0) g/dL Hct 37.3 L (38.0-50.0) % MCV 91.6 (80.0-98.0) fL MCH 29.2 (27.0-32.0) pg MCHC 31.9 (31.0-37.0) g/dL RDW Std Deviation 46.1 (28.0-62.0) fl RDW Coeff of Demarco 14 (11.0-15.0) % Plt Count 217 (150-400) K/uL MPV 10.90 (7.40-12.00) fL Neut % (Auto) 85.0 H (48.0-80.0) % Lymph % (Auto) 7.9 L (16.0-40.0) % [place] % (Auto) 6.4 (0.0-15.0) % Eos % (Auto) 0.6 (0.0-7.0) % Baso % (Auto) 0.1 (0.0-1.5) % Neut # (Auto) 8.8 H (1.4-5.7) K/uL Lymph # (Auto) 0.8 (0.6-2.4) K/uL [place] # (Auto) 0.7 (0.0-0.8) K/uL Eos # (Auto) 0.1 (0.0-0.7) K/uL Baso # (Auto) 0.0 (0.0-0.1) K/uL Nucleated RBC % 0.0 /100WBC Nucleated RBCs # 0 K/uL Sodium 137 (136-148) mmol/L Potassium 3.7 (3.5-5.1) mmol/L Chloride 103 (98-107) mmol/L Carbon Dioxide 25.7 (21.0-32.0) mmol/L BUN 15 (7.0-18.0) mg/dL Creatinine 1.1 (0.8-1.3) mg/dL Est Cr Clr Drug Dosing 99.83 mL/min Estimated GFR (MDRD) > 60.0 ml/min Glucose 99 (74-106) mg/dL Hemoglobin A1c 5.8 (4.5-6.2) % Calcium 8.1 L (8.5-10.1) mg/dL Derick Results Last 24 Hrs: Microbiology 02/23/20 23:45 Aerobic Blood Culture - Preliminary Blood - Venous - Lab Draw NO GROWTH AFTER 1 DAY Anaerobic Blood Culture - Preliminary NO GROWTH AFTER 1 DAY Med Orders - Current: Current Medications Acetaminophen (Tylenol Extra Strength) 500 mg PO Q6H PRN PRN Reason: Pain/Fever Last Admin: 02/25/20 01:24 Dose: 500 mg Albuterol/Ipratropium (Duoneb 3.0-0.5 Mg/3 Ml) 3 ml NEB Q4HRRT PRN PRN Reason: Shortness of Breath Hydromorphone HCl (Dilaudid) 2 mg PO Q8H PRN PRN Reason: Breakthrough Pain Last Admin: 02/24/20 20:18 Dose: 2 mg Lactated Ringer's (Ringers, Lactated) 1,000 mls @ 125 mls/hr IV ASDIRECTED [facility] Last Admin: 02/24/20 15:52 Dose: 125 mls/hr Levofloxacin/Dextrose 750 mg/ (Premix) 150 mls @ 100 mls/hr IV Q24H [facility] Last Admin: 02/25/20 01:26 Dose: 100 mls/hr Metronidazole 500 mg/ Premix 100 mls @ 100 mls/hr IV QID [facility] Ketorolac Tromethamine (Toradol) 30 mg IVPUSH Q8H PRN PRN Reason: Pain Stop: 02/29/20 15:30 Last Admin: 02/25/20 07:33 Dose: 30 mg Discontinued Medications Hydromorphone HCl (Dilaudid) 1 mg IVPUSH ONETIME ONE Stop: 02/24/20 00:15 Last Admin: 02/24/20 00:31 Dose: 1 mg Sodium Chloride (Normal Saline) 1,000 mls @ 999 mls/hr IV .BOLUS ONE Stop: 02/24/20 00:36 Last Admin: 02/23/20 23:47 Dose: 999 mls/hr Sodium Chloride (Normal Saline) 1,000 mls @ 999 mls/hr IV .Bolus ONE Stop: 02/24/20 00:44 Last Admin: 02/23/20 23:48 Dose: 999 mls/hr Levofloxacin/Dextrose 500 mg/ (Premix) 100 mls @ 100 mls/hr IV ONETIME ONE Stop: 02/24/20 01:44 Last Admin: 02/24/20 01:48 Dose: 100 mls/hr Sodium Chloride (Normal Saline) 1,000 mls @ 250 mls/hr IV .Bolus ONE Stop: 02/24/20 05:41 Last Admin: 02/24/20 01:48 Dose: 250 mls/hr Piperacillin Sod/Tazobactam (Sod 3.375 gm/ Sodium Chloride) 50 mls @ 100 mls/ hr IV Q8H [facility] Last Admin: 02/24/20 05:10 Dose: 100 mls/hr Vancomycin HCl (Vancomycin 1.5 Gm/300 Ml Premix) 300 mls @ 200 mls/hr IV Q8H [facility] Last Admin: 02/24/20 05:46 Dose: 200 mls/hr Piperacillin Sod/Tazobactam (Sod 3.375 gm/ Sodium Chloride) 50 mls @ 100 mls/ hr IV Q6H [facility] Last Admin: 02/25/20 05:00 Dose: 100 mls/hr Vancomycin HCl (Vancomycin 1.5 Gm/300 Ml Premix) 300 mls @ 200 mls/hr IV Q12H [facility] Last Admin: 02/25/20 05:43 Dose: 200 mls/hr Iopamidol (Isovue-370 (76%)) 100 ml IVPUSH ONETIME STA Stop: 02/24/20 01:14 Last Admin: 02/24/20 01:14 Dose: 100 ml Iopamidol (Isovue Multipack-370 (76%)) 60 ml IVPUSH ONETIME STA Stop: 02/24/20 11:55 Last Admin: 02/24/20 12:02 Dose: 60 ml Morphine Sulfate (Morphine) 1 mg IVPUSH Q4H PRN PRN Reason: Pain Last Admin: 02/24/20 08:55 Dose: 1 mg Vancomycin HCl (Pharmacy To Dose - Vancomycin) 1 dose .XX ASDIRECTED EDUIN - Exam GI/Abdominal Exam: Normal Bowel Sounds, Soft, No Distention Sepsis Event Note - Evaluation Sepsis Screening Result: No Definite Risk - Focused Exam Vital Signs: Vital Signs Temp Pulse Resp BP Pulse Ox Pulse Ox 02/25/20 08:00 98.4 F 88 18 113/70 94 L 02/25/20 05:00 96 02/25/20 04:50 99 F 80 19 112/61 96 02/25/20 00:30 99 F 85 19 97 02/25/20 00:00 100.9 F H 115 H 24 H 117/66 87 L Date Exam was Performed: 02/25/20 Time Exam was Performed: 10:11 - Problem List Review Problem List Initiated/Reviewed/Updated: Yes - My Orders Last 24 Hours: Active Orders 24 hr Category Date Time Status C DIFFICILE AG/TOXIN W/REFLEX [RM] Routine Lab 02/25/20 10:04 Ordered VANCOMYCIN TROUGH [CHEM] Routine Lab 02/25/20 09:44 Received HYDROmorphone [Dilaudid] Med 02/24/20 16:26 Active 2 mg PO Q8H PRN Ketorolac [Toradol] Med 02/24/20 15:30 Active 30 mg IVPUSH Q8H PRN Levofloxacin/Dextrose 5%-Water [Levaquin in D5W 750 MG/ Med 02/25/20 01:30 Active 150 ML] 750 mg Premix Bag 1 bag IV Q24H metroNIDAZOLE/Normal Saline [Flagyl 500 MG in NS 100 ML Med 02/25/20 12:00 Active ] 500 mg Premix Bag 1 bag IV QID Medication Orders Acetaminophen (Tylenol Extra Strength) 500 mg PO Q6H PRN PRN Reason: Pain/Fever Last Admin: 02/25/20 01:24 Dose: 500 mg Admin: 02/24/20 05:57 Dose: 500 mg Albuterol/Ipratropium (Duoneb 3.0-0.5 Mg/3 Ml) 3 ml NEB Q4HRRT PRN PRN Reason: Shortness of Breath Hydromorphone HCl (Dilaudid) 2 mg PO Q8H PRN PRN Reason: Breakthrough Pain Last Admin: 02/24/20 20:18 Dose: 2 mg Lactated Ringer's (Ringers, Lactated) 1,000 mls @ 125 mls/hr IV ASDIRECTED [facility] Last Admin: 02/24/20 15:52 Dose: 125 mls/hr Infusion: 02/24/20 13:14 Dose: 125 mls/hr Admin: 02/24/20 05:14 Dose: 125 mls/hr Levofloxacin/Dextrose 750 mg/ (Premix) 150 mls @ 100 mls/hr IV Q24H [facility] Last Admin: 02/25/20 01:26 Dose: 100 mls/hr Metronidazole 500 mg/ Premix 100 mls @ 100 mls/hr IV QID [facility] Ketorolac Tromethamine (Toradol) 30 mg IVPUSH Q8H PRN PRN Reason: Pain Stop: 02/29/20 15:30 Last Admin: 02/25/20 07:33 Dose: 30 mg Admin: 02/24/20 15:51 Dose: 30 mg - Assessment Assessment (Free Text/Narrative):: day 2 from abscess drainage; doing well, patricio po, low grade temp last night to 100.5, afeb this am; patricio po; julio drainage minimal and clear straw yellow; wbc 10 ; clinically doing well; ok to dc home on augmentin X 10 days; fu w me next wk; chart from [facility], IR drained 20 cc "ladan pus". - Plan Plan (Free Text/Narrative):: day 2 from abscess drainage; doing well, patricio po, low grade temp last night to 100.5, afeb this am; patricio po; julio drainage minimal and clear straw yellow; wbc 10 ; clinically doing well; ok to dc home on augmentin X 10 days; fu w me next wk; [facility] IR drained 20 cc "ladan pus".
--- NOTE | 2020-02-25 10:40 | PCM.PN ---
- General Info Date of Service: 02/25/20 Subjective Update: Patient reports he is doing well. He did desat while sleeping last to 87% and he did spike a temp of 100.9. This morning, breathing well on room air. Abdominal pain is under control. Reports loose stools. - Review of Systems General: Reports: Fever HEENT: Reports: No Symptoms Pulmonary: Reports: No Symptoms Cardiovascular: Reports: No Symptoms Gastrointestinal: Reports: Abdominal Pain, Diarrhea. Denies: Constipation, Nausea, Vomiting Genitourinary: Reports: No Symptoms Musculoskeletal: Reports: No Symptoms Skin: Reports: No Symptoms Neurological: Reports: No Symptoms Psychiatric: Reports: No Symptoms - Patient Data Vitals - Most Recent: Last Vital Signs Temp 98.4 F 02/25/20 08:00 Pulse 88 02/25/20 08:00 Resp 18 02/25/20 08:00 BP 113/70 02/25/20 08:00 Pulse Ox 94 L 02/25/20 08:00 Weight - Most Recent: 139.6 kg I&O - Last 24 Hours: Intake & Output 02/24/20 02/25/20 02/25/20 22:59 06:59 14:59 Intake Total 3005 2148 Output Total 855 7 Balance 2150 2141 Lab Results Last 24 Hours: Laboratory Results - last 24 hr 02/24/20 02/25/20 02/25/20 Range/Units 07:28 04:55 04:55 WBC 10.39 (4.0-11.0) K/uL RBC 4.07 L (4.50-5.90) M/uL Hgb 11.9 L (13.0-17.0) g/dL Hct 37.3 L (38.0-50.0) % MCV 91.6 (80.0-98.0) fL MCH 29.2 (27.0-32.0) pg MCHC 31.9 (31.0-37.0) g/dL RDW Std Deviation 46.1 (28.0-62.0) fl RDW Coeff of Demarco 14 (11.0-15.0) % Plt Count 217 (150-400) K/uL MPV 10.90 (7.40-12.00) fL Neut % (Auto) 85.0 H (48.0-80.0) % Lymph % (Auto) 7.9 L (16.0-40.0) % [place] % (Auto) 6.4 (0.0-15.0) % Eos % (Auto) 0.6 (0.0-7.0) % Baso % (Auto) 0.1 (0.0-1.5) % Neut # (Auto) 8.8 H (1.4-5.7) K/uL Lymph # (Auto) 0.8 (0.6-2.4) K/uL [place] # (Auto) 0.7 (0.0-0.8) K/uL Eos # (Auto) 0.1 (0.0-0.7) K/uL Baso # (Auto) 0.0 (0.0-0.1) K/uL Nucleated RBC % 0.0 /100WBC Nucleated RBCs # 0 K/uL Sodium 137 (136-148) mmol/L Potassium 3.7 (3.5-5.1) mmol/L Chloride 103 (98-107) mmol/L Carbon Dioxide 25.7 (21.0-32.0) mmol/L BUN 15 (7.0-18.0) mg/dL Creatinine 1.1 (0.8-1.3) mg/dL Est Cr Clr Drug Dosing 99.83 mL/min Estimated GFR (MDRD) > 60.0 ml/min Glucose 99 (74-106) mg/dL Hemoglobin A1c 5.8 (4.5-6.2) % Calcium 8.1 L (8.5-10.1) mg/dL Derick Results Last 24 Hours: Microbiology 02/23/20 23:45 Aerobic Blood Culture - Preliminary Blood - Venous - Lab Draw NO GROWTH AFTER 1 DAY Anaerobic Blood Culture - Preliminary NO GROWTH AFTER 1 DAY Med Orders - Current: Current Medications Acetaminophen (Tylenol Extra Strength) 500 mg PO Q6H PRN PRN Reason: Pain/Fever Last Admin: 02/25/20 01:24 Dose: 500 mg Albuterol/Ipratropium (Duoneb 3.0-0.5 Mg/3 Ml) 3 ml NEB Q4HRRT PRN PRN Reason: Shortness of Breath Hydromorphone HCl (Dilaudid) 2 mg PO Q8H PRN PRN Reason: Breakthrough Pain Last Admin: 05/06/20 20:18 Dose: 2 mg Lactated Ringer's (Ringers, Lactated) 1,000 mls @ 125 mls/hr IV ASDIRECTED [facility] Last Admin: 02/24/20 15:52 Dose: 125 mls/hr Levofloxacin/Dextrose 750 mg/ (Premix) 150 mls @ 100 mls/hr IV Q24H [facility] Last Admin: 02/25/20 01:26 Dose: 100 mls/hr Metronidazole 500 mg/ Premix 100 mls @ 100 mls/hr IV QID EDUIN Ketorolac Tromethamine (Toradol) 30 mg IVPUSH Q8H PRN PRN Reason: Pain Stop: 02/29/20 15:30 Last Admin: 02/25/20 07:33 Dose: 30 mg Discontinued Medications Hydromorphone HCl (Dilaudid) 1 mg IVPUSH ONETIME ONE Stop: 02/24/20 00:15 Last Admin: 02/24/20 00:31 Dose: 1 mg Sodium Chloride (Normal Saline) 1,000 mls @ 999 mls/hr IV .BOLUS ONE Stop: 02/24/20 00:36 Last Admin: 02/23/20 23:47 Dose: 999 mls/hr Sodium Chloride (Normal Saline) 1,000 mls @ 999 mls/hr IV .Bolus ONE Stop: 02/24/20 00:44 Last Admin: 02/23/20 23:48 Dose: 999 mls/hr Levofloxacin/Dextrose 500 mg/ (Premix) 100 mls @ 100 mls/hr IV ONETIME ONE Stop: 02/24/20 01:44 Last Admin: 02/24/20 01:48 Dose: 100 mls/hr Sodium Chloride (Normal Saline) 1,000 mls @ 250 mls/hr IV .Bolus ONE Stop: 02/24/20 05:41 Last Admin: 02/24/20 01:48 Dose: 250 mls/hr Piperacillin Sod/Tazobactam (Sod 3.375 gm/ Sodium Chloride) 50 mls @ 100 mls/ hr IV Q8H [facility] Last Admin: 02/24/20 05:10 Dose: 100 mls/hr Vancomycin HCl (Vancomycin 1.5 Gm/300 Ml Premix) 300 mls @ 200 mls/hr IV Q8H [facility] Last Admin: 02/24/20 05:46 Dose: 200 mls/hr Piperacillin Sod/Tazobactam (Sod 3.375 gm/ Sodium Chloride) 50 mls @ 100 mls/ hr IV Q6H [facility] Last Admin: 02/25/20 05:00 Dose: 100 mls/hr Vancomycin HCl (Vancomycin 1.5 Gm/300 Ml Premix) 300 mls @ 200 mls/hr IV Q12H [facility] Last Admin: 02/25/20 05:43 Dose: 200 mls/hr Iopamidol (Isovue-370 (76%)) 100 ml IVPUSH ONETIME STA Stop: 02/24/20 01:14 Last Admin: 02/24/20 01:14 Dose: 100 ml Iopamidol (Isovue Multipack-370 (76%)) 60 ml IVPUSH ONETIME STA Stop: 02/24/20 11:55 Last Admin: 02/24/20 12:02 Dose: 60 ml Morphine Sulfate (Morphine) 1 mg IVPUSH Q4H PRN PRN Reason: Pain Last Admin: 02/24/20 08:55 Dose: 1 mg Vancomycin HCl (Pharmacy To Dose - Vancomycin) 1 dose .XX ASDIRECTED EDUIN - Exam General: Alert, Oriented, Cooperative Lungs: Clear to Auscultation, Normal Respiratory Effort Cardiovascular: Regular Rate, Regular Rhythm GI/Abdominal Exam: Normal Bowel Sounds, Soft, Non-Tender, No Distention Extremities: No Pedal Edema Skin: Warm, Dry, Intact Neurological: No New Focal Deficit Psy/Mental Status: Alert, Normal Affect, Normal Mood Sepsis Event Note - Evaluation Sepsis Screening Result: No Definite Risk - Focused Exam Vital Signs: Vital Signs Temp Pulse Resp BP Pulse Ox Pulse Ox 02/25/20 08:00 98.4 F 88 18 113/70 94 L 02/25/20 05:00 96 02/25/20 04:50 99 F 80 19 112/61 96 02/25/20 00:30 99 F 85 19 97 02/25/20 00:00 100.9 F H 115 H 24 H 117/66 87 L Date Exam was Performed: 02/25/20 Time Exam was Performed: 10:23 - Problem List Review Problem List Initiated/Reviewed/Updated: Yes - Plan Plan:: 1. Acute hypoxic respiratory failure secondary to healthcare associated pneumonia- suspect gram negative infection-spiked temp last night. Will switch antibiotics to Levaquin and Flagyl. He has LR at 125 cc/hr. Blood cultures negative. Duonebs prn. Encourage IS. 2. Recent abdominal surgery- catheter placed for abscess s/p appendectomy- patient on antibiotics, drain has serosanguineous fluid, general surgery aware following. Dr. Aquino recommended discharging on Augmentin for 10 days. 3.Loose stools- will test for C.diff
[2020-02-25] MEDS ORDERED: metroNIDAZOLE/Normal Saline 500 MG in Premix Bag 1 BAG IV SCH (12:00)
[2020-02-25] MEDS: Vancomycin 125 MG Cap PO SCH ×2 (13:48→18:07)
[2020-02-25] MEDS: Lactated Ringers 1,000 ML IV SCH (16:22)
[2020-02-25] MEDS ORDERED: Azithromycin 250 MG Tab PO SCH (18:00)
[2020-02-25] MEDS: Simethicone 80 MG Tab.Chew PO PRN (18:07)
[2020-02-25] MEDS: Amoxicillin/Clavulanate K 875-125 MG Tab PO SCH (22:15)
[2020-02-26] MEDS: Vancomycin 125 MG Cap PO SCH ×3 (00:41→11:57)
[2020-02-26] MEDS: Simethicone 80 MG Tab.Chew PO PRN ×2 (00:41→06:56)
[2020-02-26] MEDS: Lactated Ringers 1,000 ML IV SCH (00:42)
[2020-02-26] MEDS: Acetaminophen 500 MG Tab PO PRN (00:43)
[2020-02-26 06:28] LABS: BLOOD UREA NITROGEN,BUN 13 mg/dL (7.0-18.0); CARBON DIOXIDE,CO2 26.9 mmol/L (21.0-32.0); CHLORIDE,CL 105 mmol/L (98-107); GLUCOSE RANDOM 102 mg/dL (74-106); POTASSIUM,K 3.6 mmol/L (3.5-5.1); SODIUM,NA 141 mmol/L (136-148)
[2020-02-26] MEDS: Amoxicillin/Clavulanate K 875-125 MG Tab PO SCH (08:53)
--- NOTE | 2020-02-26 10:51 | PCM.DCSUM1 ---
Discharge Summary - Hospital Course HPI Initial Comments: Admission Date: 02/24/20 Discharge Date: 02/26/20 Admission Diagnosis: 1. Acute hypoxic respiratory failure secondary to healthcare associated pneumonia- suspect gram negative infection 2. Recent abdominal surgery- drain placed for abscess s/p appendectomy 3. GEOFF Discharge Diagnosis: 1. Acute hypoxic respiratory failure secondary to healthcare associated pneumonia- suspect gram negative infection- resolved 2. Recent abdominal surgery- drain placed for abscess s/p appendectomy 3. GEOFF- resolved 4. Clostridium Difficile Procedures: None Consults: General Surgery Hospital Course: The patient is a 34 year old male who presented to the ER last night with shortness of breath and fever. The patient underwent laparoscopic appendectomy at [facility] 2 weeks ago. He then developed abdominal pain a few days ago, presented to [place], was admitted and they found abscess. They transferred him to [place] where a drain was placed yesterday. When he arrived back home he developed shortness of breath and fever. In the ER, he was hypoxic at 88%. Lab work showed WBC of 11.3, lactate of 1.8 but elevated creatinine. He was negative for COVID. UA showed no infection but did have protein and blood. CXR showed mild atelectasis of left lung favored over infiltrate. A CT ab/pelvis was obtained which showed small pneumoperitoneum with catheter in place, and reactive mesenteric lymphadenopathy. The ER contacted Dr. Kim, general surgery, who recommended admission to hospital service and he would make Dr. Aquino aware of the patient. In the ER he received Levaquin, pain medication, and IVF. Was admitted to medical floor and started on broad spectrum antibiotics due to recent hospitalizations and concern for healthcare associated pneumonia/gram negative infection. His white count improved, and he was weaned off oxygen, satting well on room air. A CTA of the chest was obtained, imaging was suboptimal, no PE seen, positive for atelectasis but difficulty to exclude pneumonia. His GEOFF resolved with IVF. Dr. Aquino of general surgery did see the patient and recommended augmentin. He did develop diarrhea , and tested positive for C. Diff. He was started on PO vanco. By day of discharge, patients symptoms improved, and he was ready to go home. Disposition: Home Discharge Condition: vitals stable, tolerating oral diet, ambulating without difficulty, symptom improvement Discharge Instructions: regular diet as tolerated, activity as tolerated, take medications as prescribed. Symptoms to report to physician include fever/chills , chest pain, shortness of breath, abdominal pain, erythema, drainage/discharge , or not improving as expected. Discharge Medications: Sertraline [Zoloft] PO DAILY Amoxicillin/Clavulanate K [Augmentin 875-125 MG] 1 tab PO Q12HR Azithromycin [Zithromax] 250 mg PO Q24H Vancomycin 125 mg PO QID Follow-up: 1. PCP- 03/02/20 2. General Surgery 03/03/20 - Discharge Data Discharge Date: 02/26/20 Discharge Disposition: Home, Self-Care 01 Condition: Stable - Referral to Home Health Primary Care Physician: Tereso Case Jr, PA-C - Patient Instructions Diet: Usual Diet as Tolerated Activity: As Tolerated Wound/Incision Care: Keep Operative Site/Wound Site Clean and Dry Notify Provider of: Fever, Increased Pain, Swelling and Redness, Drainage, Nausea and/or Vomiting Other/Special Instructions: Additional symptoms include chest pain, shortness of breath, or abdominal pain. - Discharge Plan *PRESCRIPTION DRUG MONITORING PROGRAM REVIEWED*: No *COPY OF PRESCRIPTION DRUG MONITORING REPORT IN PATIENT NICOLASA: No Prescriptions/Med Rec: Amoxicillin/Clavulanate K [Augmentin 875-125 MG] 1 tab PO Q12HR 9 Days #18 tablet Azithromycin [Zithromax] 250 mg PO Q24H 4 Days #4 tablet Vancomycin 125 mg PO QID 9 Days #36 cap Home Medications: Home Meds Sertraline [Zoloft] PO DAILY 02/10/20 [History] Amoxicillin/Clavulanate K [Augmentin 875-125 MG] 1 tab PO Q12HR 9 Days #18 tablet 02/26/20 [Rx] Azithromycin [Zithromax] 250 mg PO Q24H 4 Days #4 tablet 02/26/20 [Rx] Vancomycin 125 mg PO QID 9 Days #36 cap 02/26/20 [Rx] Referrals: Tereso Case Jr, PA-C [Primary Care Provider] - 03/02/20 9:30 am (Arrive 15 minutes early with a photo ID and insurance card. ) - Discharge Summary/Plan Comment DC Time >30 min.: No - Patient Data Vitals - Most Recent: Last Vital Signs Temp 98.1 F 02/26/20 08:00 Pulse 91 02/26/20 08:00 Resp 24 H 02/26/20 04:00 BP 127/63 02/26/20 08:00 Pulse Ox 97 02/26/20 08:00 Weight - Most Recent: 139.6 kg I&O - Last 24 hours: Intake & Output 02/25/20 02/26/20 02/26/20 22:59 06:59 14:59 Intake Total 1563 800 Output Total 1 454 Balance 1562 346 Lab Results - Last 24 hrs: Laboratory Results - last 24 hr 02/25/20 02/26/20 02/26/20 Range/Units 16:30 05:47 05:47 WBC 9.34 (4.0-11.0) K/uL RBC 4.03 L (4.50-5.90) M/uL Hgb 11.8 L (13.0-17.0) g/dL Hct 36.4 L (38.0-50.0) % MCV 90.3 (80.0-98.0) fL MCH 29.3 (27.0-32.0) pg MCHC 32.4 (31.0-37.0) g/dL RDW Std Deviation 46.5 (28.0-62.0) fl RDW Coeff of Demarco 14 (11.0-15.0) % Plt Count 256 (150-400) K/uL MPV 10.80 (7.40-12.00) fL Neut % (Auto) 79.6 (48.0-80.0) % Lymph % (Auto) 12.2 L (16.0-40.0) % [place] % (Auto) 6.7 (0.0-15.0) % Eos % (Auto) 1.3 (0.0-7.0) % Baso % (Auto) 0.2 (0.0-1.5) % Neut # (Auto) 7.4 H (1.4-5.7) K/uL Lymph # (Auto) 1.1 (0.6-2.4) K/uL [place] # (Auto) 0.6 (0.0-0.8) K/uL Eos # (Auto) 0.1 (0.0-0.7) K/uL Baso # (Auto) 0.0 (0.0-0.1) K/uL Nucleated RBC % 0.0 /100WBC Nucleated RBCs # 0 K/uL Sodium 141 (136-148) mmol/L Potassium 3.6 (3.5-5.1) mmol/L Chloride 105 (98-107) mmol/L Carbon Dioxide 26.9 (21.0-32.0) mmol/L BUN 13 (7.0-18.0) mg/dL Creatinine 1.2 (0.8-1.3) mg/dL Est Cr Clr Drug Dosing 91.51 mL/min Estimated GFR (MDRD) > 60.0 ml/min Glucose 102 (74-106) mg/dL Calcium 8.4 L (8.5-10.1) mg/dL Vancomycin Trough 7.1 (5.0-10.0) ug/mL DEXTER Results - Last 24 hrs: Microbiology 02/25/20 11:00 Clostridioides difficile (PCR) - Final Stool / Feces 02/23/20 23:45 Aerobic Blood Culture - Preliminary Blood - Venous - Lab Draw NO GROWTH AFTER 2 DAYS Anaerobic Blood Culture - Preliminary NO GROWTH AFTER 2 DAYS 02/25/20 11:00 C. difficile Antigen & Toxins A,B - Final Stool / Feces Med Orders - Current: Current Medications Acetaminophen (Tylenol Extra Strength) 500 mg PO Q6H PRN PRN Reason: Pain/Fever Last Admin: 02/26/20 00:43 Dose: 500 mg Albuterol/Ipratropium (Duoneb 3.0-0.5 Mg/3 Ml) 3 ml NEB Q4HRRT PRN PRN Reason: Shortness of Breath Amoxicillin/Clavulanate Potassium (Augmentin 875 Mg/125 Mg) 1 tab PO Q12HR [facility] Last Admin: 02/26/20 08:53 Dose: 1 tab Azithromycin (Zithromax) 500 mg PO Q24H EDUIN Last Admin: 02/25/20 18:07 Dose: 500 mg Hydromorphone HCl (Dilaudid) 2 mg PO Q8H PRN PRN Reason: Breakthrough Pain Last Admin: 02/24/20 20:18 Dose: 2 mg Lactated Ringer's (Ringers, Lactated) 1,000 mls @ 125 mls/hr IV ASDIRECTED [facility] Last Admin: 02/26/20 00:42 Dose: 125 mls/hr Ketorolac Tromethamine (Toradol) 30 mg IVPUSH Q8H PRN PRN Reason: Pain Stop: 02/29/20 15:30 Last Admin: 02/25/20 17:06 Dose: 30 mg Simethicone (Simethicone) 80 mg PO Q6H PRN PRN Reason: Gas Last Admin: 02/26/20 06:56 Dose: 80 mg Vancomycin HCl (Vancomycin) 125 mg PO QID EDUIN Last Admin: 02/26/20 06:17 Dose: 125 mg Discontinued Medications Hydromorphone HCl (Dilaudid) 1 mg IVPUSH ONETIME ONE Stop: 02/24/20 00:15 Last Admin: 02/24/20 00:31 Dose: 1 mg Sodium Chloride (Normal Saline) 1,000 mls @ 999 mls/hr IV .BOLUS ONE Stop: 02/24/20 00:36 Last Admin: 02/23/20 23:47 Dose: 999 mls/hr Sodium Chloride (Normal Saline) 1,000 mls @ 999 mls/hr IV .Bolus ONE Stop: 02/24/20 00:44 Last Admin: 02/23/20 23:48 Dose: 999 mls/hr Levofloxacin/Dextrose 500 mg/ (Premix) 100 mls @ 100 mls/hr IV ONETIME ONE Stop: 02/24/20 01:44 Last Admin: 02/24/20 01:48 Dose: 100 mls/hr Sodium Chloride (Normal Saline) 1,000 mls @ 250 mls/hr IV .Bolus ONE Stop: 02/24/20 05:41 Last Admin: 02/24/20 01:48 Dose: 250 mls/hr Piperacillin Sod/Tazobactam (Sod 3.375 gm/ Sodium Chloride) 50 mls @ 100 mls/ hr IV Q8H [facility] Last Admin: 02/24/20 05:10 Dose: 100 mls/hr Vancomycin HCl (Vancomycin 1.5 Gm/300 Ml Premix) 300 mls @ 200 mls/hr IV Q8H [facility] Last Admin: 02/24/20 05:46 Dose: 200 mls/hr Piperacillin Sod/Tazobactam (Sod 3.375 gm/ Sodium Chloride) 50 mls @ 100 mls/ hr IV Q6H [facility] Last Admin: 02/25/20 05:00 Dose: 100 mls/hr Vancomycin HCl (Vancomycin 1.5 Gm/300 Ml Premix) 300 mls @ 200 mls/hr IV Q12H [facility] Last Admin: 02/25/20 05:43 Dose: 200 mls/hr Levofloxacin/Dextrose 750 mg/ (Premix) 150 mls @ 100 mls/hr IV Q24H [facility] Last Admin: 02/25/20 01:26 Dose: 100 mls/hr Metronidazole 500 mg/ Premix 100 mls @ 100 mls/hr IV QID [facility] Last Admin: 02/25/20 12:17 Dose: 100 mls/hr Iopamidol (Isovue-370 (76%)) 100 ml IVPUSH ONETIME STA Stop: 02/24/20 01:14 Last Admin: 02/24/20 01:14 Dose: 100 ml Iopamidol (Isovue Multipack-370 (76%)) 60 ml IVPUSH ONETIME STA Stop: 02/24/20 11:55 Last Admin: 02/24/20 12:02 Dose: 60 ml Morphine Sulfate (Morphine) 1 mg IVPUSH Q4H PRN PRN Reason: Pain Last Admin: 02/24/20 08:55 Dose: 1 mg Vancomycin HCl (Pharmacy To Dose - Vancomycin) 1 dose .XX ASDIRECTED [facility]
== END 2020-02-26 12:30 | disposition home or self-care (01) ==
LOC: MW.ED 23:14 → MW.MS 02-24 02:19
PROVIDERS: ADMIT Student in an Organized Health Care Education/Training Program; ATTEND Student in an Organized Health Care Education/Training Program
DX: J96.01 Acute respiratory failure with hypoxia (principal); J18.9 Pneumonia, unspecified organism; Y95 Nosocomial condition; E66.9 Obesity, unspecified; F41.9 Anxiety disorder, unspecified; N17.9 Acute kidney failure, unspecified; A04.72 Enterocolitis due to Clostridium difficile, not specified as recurrent; Z20.828 Contact with and (suspected) exposure to other viral communicable diseases; Z90.49 Acquired absence of other specified parts of digestive tract; Z68.41 Body mass index [BMI] 40.0-44.9, adult
CPT/HCPCS: 36415; 71045; 71045-26; 71275; 71275-26; 74177; 74177-26; 80048; 80053; 80202; 81001; 83036; 83605; 85025; 87040; 87324; 87493; 96361; 96365; 96366; 96375; 99284; 99285-25; A9270-GY; J1170; J1885; J1956; J2270; J2543; J3370; J3490; J7030; J7050; J7120; Q9967; U0002

== ENCOUNTER 2021-06-09 11:10 | Day surgery (SDC) | payer BC ==
[~2021-06-09 11:10] MED LIST: Lactated Ringers 1,000 ML IV SCH
--- NOTE | 2021-06-09 11:42 | PCM.PREANE ---
Preanesthetic Assessment - Procedure Proposed Procedure: Colonoscopy - Anesthesia/Transfusion/Family Hx Anesthesia History: Prior Anesthesia Without Reaction Transfusion History: No Prior Transfusion(s) - Review of Systems General: No Symptoms Pulmonary: No Symptoms (Wuit smoking >10years ago) Cardiovascular: No Symptoms Gastrointestinal: No Symptoms Neurological: No Symptoms Other: Reports: None (H/O Kidney stones) - Physical Assessment NPO Status Date: 06/07/21 NPO Status Time: 19:30 Height: 5 ft 11 in Weight: 152.407 kg (Morbid Obesity) ASA Class: 3 Mental Status: Alert & Oriented x3 Airway Class: Mallampati = 3 Dentition: Reports: Missing Tooth/Teeth (some missing, has partial but doesn't use) Thyro-Mental Finger Breadths: 3 Mouth Opening Finger Breadths: 3 ROM/Head Extension: Full Lungs: Clear to Auscultation, Normal Respiratory Effort Cardiovascular: Regular Rate, Regular Rhythm - Allergies Allergies/Adverse Reactions: Allergies Allergy/AdvReac Type Severity Reaction Status Date / Time morphine Allergy "oxygen Verified 06/06/21 08:39 level dropped" - Acknowledgements Anesthesia Type Planned: General Anesthesia Pt an Appropriate Candidate for the Planned Anesthesia: Yes Alternatives and Risks of Anesthesia Discussed w Pt/Guardian: Yes Pt/Guardian Understands and Agrees with Anesthesia Plan: Yes PreAnesthesia Questionnaire HEENT History: Reports: Other (See Below) Other HEENT History: wears glasses Cardiovascular History: Reports: None Respiratory History: Reports: None Gastrointestinal History: Reports: Other (See Below) Other Gastrointestinal History: hx c-diff in february of 2020, presently c/o rectal bleeding Genitourinary History: Reports: Renal Calculus Other Genitourinary History: hx of passing 1 stone Musculoskeletal History: Reports: Back Pain, Chronic Other Musculoskeletal History: hx of fx finger Neurological History: Reports: None Other Neuro History: hx of migraine 5 years ago Psychiatric History: Reports: Anxiety Endocrine/Metabolic History: Reports: Obesity/BMI 30+ Hematologic History: Reports: None Immunologic History: Reports: None Oncologic (Cancer) History: Reports: None Dermatologic History: Reports: None - Infectious Disease History Infectious Disease History: Reports: Chicken Pox - Past Surgical History Head Surgeries/Procedures: Reports: None HEENT Surgical History: Reports: Oral Surgery Cardiovascular Surgical History: Reports: None Respiratory Surgical History: Reports: None GI Surgical History: Reports: Appendectomy Male Surgical History: Reports: None Endocrine Surgical History: Reports: None Neurological Surgical History: Reports: None Musculoskeletal Surgical History: Reports: None Oncologic Surgical History: Reports: None Dermatological Surgical History: Reports: None - SUBSTANCE USE Tobacco Use Within Last Twelve Months: Smokeless Tobacco - HOME MEDS Home Medications: Home Meds . [No Known Home Meds] 06/06/21 [History] - CURRENT (IN HOUSE) MEDS Current Meds: Current Medications Lactated Ringer's (Ringers, Lactated) 1,000 mls @ 125 mls/hr IV ASDIRECTED EDUIN
[2021-06-09] MEDS ORDERED: Midazolam 1 MG/ML 2 ML SDV ONE (12:42)
[2021-06-09] MEDS ORDERED: Propofol 200 MG/20 ML SDV ONE ×2 (12:42→13:18)
[2021-06-09] MEDS ORDERED: fentaNYL 100 MCG/2 ML SDV ONE (12:43)
--- NOTE | 2021-06-09 13:43 | PCM.POSTAN ---
POST ANESTHESIA ASSESSMENT - MENTAL STATUS Mental Status: Alert, Oriented - VITAL SIGNS Vital Signs: Last Vital Signs Temp 98.6 F 06/09/21 13:36 Pulse 70 06/09/21 13:36 Resp 17 06/09/21 13:36 BP 104/58 L 06/09/21 13:36 Pulse Ox 100 06/09/21 13:36 - RESPIRATORY Respiratory Status: Respiratory Rate WNL, Airway Patent, O2 Saturation Stable - CARDIOVASCULAR CV Status: Pulse Rate WNL, Blood Pressure Stable - GASTROINTESTINAL GI Status: No Symptoms - PAIN Pain Score: 0 - POST OP HYDRATION Hydration Status: Adequate & Stable
[2021-06-09] MEDS ORDERED: Lactated Ringers 1,000 ML IV SCH (13:45)
--- NOTE | 2021-06-09 13:46 | PCM48HPAN ---
Post Anesthesia Note - EVALUATION WITHIN 48HRS OF ANESTHETIC Vital Signs in Normal Range: Yes Patient Participated in Evaluation: Yes Respiratory Function Stable: Yes Airway Patent: Yes Cardiovascular Function Stable: Yes Hydration Status Stable: Yes Pain Control Satisfactory: Yes Nausea and Vomiting Control Satisfactory: Yes Mental Status Recovered: Yes Vital Signs: Last Vital Signs Temp 98.6 F 06/09/21 13:36 Pulse 61 06/09/21 13:42 Resp 11 L 06/09/21 13:42 BP 107/65 06/09/21 13:42 Pulse Ox 100 06/09/21 13:42 - COMMENTS/OBSERVATIONS Free Text/Narrative:: Pt doing well post-op. VSS. No apparent anesthetic complications. Dr. Ryan Salinas
--- NOTE | 2021-06-09 13:47 | PCM.OPNOTE ---
- General Post-Op/Procedure Note Date of Surgery/Procedure: 06/09/21 Operative Procedure(s): Colonoscopy Pre Op Diagnosis: Rectal bleeding. Change in bowel habits. Crampy RUQ pain. Post-Op Diagnosis: No evidence of neoplasia. Anesthesia Technique: MAC (ASA III) [facility] Condition: Good Free Text/Narrative:: DICTATION [id number] CPT CODE [id number]
--- NOTE | 2021-06-09 16:58 | OR ---
SURGEON: Torin Kim M.D. DATE OF PROCEDURE: 06/09/2021 OPERATION PERFORMED: Colonoscopy. PRIMARY SURGEON: Torin Kim MD ANESTHESIA: MAC. ASA CLASSIFICATION: III. PREOPERATIVE DIAGNOSES: 1. Rectal bleeding. 2. Change in bowel habits. 3. Crampy right abdominal pain. POSTOPERATIVE DIAGNOSES: No evidence of neoplasia. DESCRIPTION OF PROCEDURE: The patient was taken to the endoscopy room and positioned on the endoscopy table in the left lateral decubitus position. Time-out was called for appropriate identification of the patient and procedure. Monitored anesthesia care was provided. The colonoscope was inserted into the rectum and advanced with minimal difficulty to the cecum. The cecum was identified by internal landmarks and external pressure. Despite multiple maneuvers and attempts, we could never retroflex the colonoscope in the cecum. The colonoscope was then slowly withdrawn. The cecum, ascending colon, hepatic flexure, transverse colon, splenic flexure, descending colon, sigmoid colon, and rectum were very well visualized. No tumors, polyps, diverticula, or angiodysplastic changes were noted anywhere in the lower gastrointestinal tract. There was no evidence of inflammatory bowel disease. Once the colonoscope was withdrawn to the rectum, it was retroflexed to visualize the anal orifice from above. No acute hemorrhoidal changes were noted. No rectal polyps or tumors were encountered. The colonoscope was then straightened, the rectum aspirated, and the colonoscope removed. The patient tolerated the procedure well and was taken to recovery room in stable condition. BRODIE / LEE /[id number]
== END 2021-06-09 14:10 | disposition home or self-care (01) ==
LOC: MW.SDS 11:10
PROVIDERS: ATTEND Surgery
DX: K62.5 Hemorrhage of anus and rectum (principal); R10.11 Right upper quadrant pain; R19.4 Change in bowel habit; K42.9 Umbilical hernia without obstruction or gangrene; E66.01 Morbid (severe) obesity due to excess calories; Z68.42 Body mass index [BMI] 45.0-49.9, adult; Z88.6 Allergy status to analgesic agent
CPT/HCPCS: 45378; J2250; J2704; J3010; J7120

== ENCOUNTER 2021-10-28 09:36 | Emergency (ER) | payer BC ==
--- NOTE | 2021-10-28 09:47 | EDM.PDOC ---
ED HPI GENERAL MEDICAL PROBLEM - General Chief Complaint: Genitourinary Problem Stated Complaint: "POSSIBLE KIDNEY STONES" Time Seen by Provider: 10/28/21 09:42 Source of Information: Reports: Patient History Limitations: Reports: No Limitations - History of Present Illness INITIAL COMMENTS - FREE TEXT/NARRATIVE: 35-year-old male past medical history of renal stones, obesity presents for left flank pain. Patient notes that pain woke him up around 2:30 AM. It is in his left flank area with some radiation to his left side. He notes it feels similar to prior episode of kidney stones. He has never required intervention for kidney stones as they have passed on their own. He notes some nausea but no vomiting. He denies any fevers. He denies any hematuria or dysuria. Patient also incidentally notes that he has had some nasal congestion following extended periods of time outside in the cold weather. He denies any cough or difficulty breathing. Again denies fevers. He is fully vaccinated including a booster vaccination against COVID-19. Left Flank Pain Score (Numeric/FACES): 10 - Related Data Allergies Allergy/AdvReac Type Severity Reaction Status Date / Time morphine Allergy "oxygen Verified 10/28/21 09:42 level dropped" Home Meds: Home Meds Acetaminophen/oxyCODONE [Percocet 325-5 MG] 1 each PO Q6H PRN #12 tab 10/28/21 [Rx] Ibuprofen [Motrin] 600 mg PO Q6H PRN #30 tab 10/28/21 [Rx] Tamsulosin HCl [Flomax] 0.4 mg PO DAILY #7 cap.er.24h 10/28/21 [Rx] Past Medical History HEENT History: Reports: Other (See Below) Other HEENT History: wears glasses Cardiovascular History: Reports: None Respiratory History: Reports: None Gastrointestinal History: Reports: Other (See Below) Other Gastrointestinal History: hx c-diff in february of 2020, presently c/o rectal bleeding Genitourinary History: Reports: Renal Calculus Other Genitourinary History: hx of passing 1 stone Musculoskeletal History: Reports: Back Pain, Chronic Other Musculoskeletal History: hx of fx finger Neurological History: Reports: None Other Neuro History: hx of migraine 5 years ago Psychiatric History: Reports: Anxiety Endocrine/Metabolic History: Reports: Obesity/BMI 30+ Hematologic History: Reports: None Immunologic History: Reports: None Oncologic (Cancer) History: Reports: None Dermatologic History: Reports: None - Infectious Disease History Infectious Disease History: Reports: Chicken Pox - Past Surgical History Head Surgeries/Procedures: Reports: None HEENT Surgical History: Reports: Oral Surgery Cardiovascular Surgical History: Reports: None Respiratory Surgical History: Reports: None GI Surgical History: Reports: Appendectomy Male Surgical History: Reports: None Endocrine Surgical History: Reports: None Neurological Surgical History: Reports: None Musculoskeletal Surgical History: Reports: None Oncologic Surgical History: Reports: None Dermatological Surgical History: Reports: None Social & Family History - Family History Family Medical History: No Pertinent Family History - Caffeine Use Caffeine Use: Reports: None ED ROS GENERAL - Review of Systems Review Of Systems: Comprehensive ROS is negative, except as noted in HPI. ED EXAM, GENERAL - Physical Exam Exam: See Below Exam Limited By: No Limitations General Appearance: Alert, WD/WN, No Apparent Distress Ears: Hearing Grossly Normal Throat/Mouth: Normal Voice, No Airway Compromise Head: Atraumatic, Normocephalic Respiratory/Chest: No Respiratory Distress, Lungs Clear, Normal Breath Sounds, No Accessory Muscle Use Cardiovascular: Normal Peripheral Pulses, Regular Rate, Rhythm GI/Abdominal: Soft, Non-Tender Back Exam: No: CVA Tenderness (L), CVA Tenderness (R) Extremities: Normal Inspection Neurological: Alert, Normal Cognition, Normal Gait Psychiatric: Normal Affect, Normal Mood Skin Exam: Warm, Dry, Intact, Normal Color Course - Vital Signs Last Recorded V/S: Last Vital Signs Temp 97.9 F 10/28/21 09:43 Pulse 84 10/28/21 09:43 Resp 20 10/28/21 09:43 BP 158/102 H 10/28/21 09:43 Pulse Ox 97 10/28/21 09:43 - Orders/Labs/Meds Orders: Active Orders 24 hr Category Date Time Status Saline Lock Insert [OM.PC] Stat Oth 10/28/21 09:51 Ordered Labs: Laboratory Tests 10/28/21 10/28/21 10/28/21 Range/Units 09:49 09:49 09:49 WBC 8.79 (4.0-11.0) K/uL RBC 4.99 (4.50-5.90) M/uL Hgb 15.3 (13.0-17.0) g/dL Hct 45.9 (38.0-50.0) % MCV 92.0 (80.0-98.0) fL MCH 30.7 (27.0-32.0) pg MCHC 33.3 (31.0-37.0) g/dL RDW Std Deviation 46.1 (28.0-62.0) fl RDW Coeff of Demarco 14 (11.0-15.0) % Plt Count 217 (150-400) K/uL MPV 11.30 (7.40-12.00) fL Neut % (Auto) 68.6 (48.0-80.0) % Lymph % (Auto) 19.7 (16.0-40.0) % [place] % (Auto) 9.0 (0.0-15.0) % Eos % (Auto) 2.4 (0.0-7.0) % Baso % (Auto) 0.3 (0.0-1.5) % Neut # (Auto) 6.0 H (1.4-5.7) K/uL Lymph # (Auto) 1.7 (0.6-2.4) K/uL [place] # (Auto) 0.8 (0.0-0.8) K/uL Eos # (Auto) 0.2 (0.0-0.7) K/uL Baso # (Auto) 0.0 (0.0-0.1) K/uL Nucleated RBC % 0.0 /100WBC Nucleated RBCs # 0 K/uL Sodium 142 (136-148) mmol/L Potassium 4.4 (3.5-5.1) mmol/L Chloride 103 (98-107) mmol/L Carbon Dioxide 29.1 (21.0-32.0) mmol/L BUN 16 (7.0-18.0) mg/dL Creatinine 1.4 H (0.8-1.3) mg/dL Est Cr Clr Drug Dosing 77.69 mL/min Estimated GFR (MDRD) 57.3 ml/min Glucose 97 (74-106) mg/dL Calcium 8.7 (8.5-10.1) mg/dL Urine Color Urine Appearance Urine pH (5.0-8.0) Ur Specific [place] (1.001-1.035) Urine Protein (NEGATIVE) mg/dL Urine Glucose (UA) (NEGATIVE) mg/dL Urine Ketones (NEGATIVE) mg/dL Urine Occult Blood (NEGATIVE) Urine Nitrite (NEGATIVE) Urine Bilirubin (NEGATIVE) Urine Urobilinogen (<2.0) EU/dL Ur Leukocyte Esterase (NEGATIVE) Urine RBC (0-2/HPF) Urine WBC (0-5/HPF) Ur Epithelial Cells (NONE-FEW) Urine Bacteria (NEGATIVE) Urine Mucus (NONE-MOD) Influenza Type A RNA NEGATIVE (NEGATIVE) Influenza Type B RNA NEGATIVE (NEGATIVE) SARS-CoV-2 RNA (TIFFANIE) NEGATIVE (NEGATIVE) 10/28/21 Range/Units 11:12 WBC (4.0-11.0) K/uL RBC (4.50-5.90) M/uL Hgb (13.0-17.0) g/dL Hct (38.0-50.0) % MCV (80.0-98.0) fL MCH (27.0-32.0) pg MCHC (31.0-37.0) g/dL RDW Std Deviation (28.0-62.0) fl RDW Coeff of Demarco (11.0-15.0) % Plt Count (150-400) K/uL MPV (7.40-12.00) fL Neut % (Auto) (48.0-80.0) % Lymph % (Auto) (16.0-40.0) % [place] % (Auto) (0.0-15.0) % Eos % (Auto) (0.0-7.0) % Baso % (Auto) (0.0-1.5) % Neut # (Auto) (1.4-5.7) K/uL Lymph # (Auto) (0.6-2.4) K/uL [place] # (Auto) (0.0-0.8) K/uL Eos # (Auto) (0.0-0.7) K/uL Baso # (Auto) (0.0-0.1) K/uL Nucleated RBC % /100WBC Nucleated RBCs # K/uL Sodium (136-148) mmol/L Potassium (3.5-5.1) mmol/L Chloride (98-107) mmol/L Carbon Dioxide (21.0-32.0) mmol/L BUN (7.0-18.0) mg/dL Creatinine (0.8-1.3) mg/dL Est Cr Clr Drug Dosing mL/min Estimated GFR (MDRD) ml/min Glucose (74-106) mg/dL Calcium (8.5-10.1) mg/dL Urine Color YELLOW Urine Appearance CLEAR Urine pH 6.0 (5.0-8.0) Ur Specific [place] 1.020 (1.001-1.035) Urine Protein NEGATIVE (NEGATIVE) mg/dL Urine Glucose (UA) NEGATIVE (NEGATIVE) mg/dL Urine Ketones NEGATIVE (NEGATIVE) mg/dL Urine Occult Blood TRACE-INTACT H (NEGATIVE) Urine Nitrite NEGATIVE (NEGATIVE) Urine Bilirubin NEGATIVE (NEGATIVE) Urine Urobilinogen 0.2 (<2.0) EU/dL Ur Leukocyte Esterase NEGATIVE (NEGATIVE) Urine RBC 0-5 (0-2/HPF) Urine WBC 0-5 (0-5/HPF) Ur Epithelial Cells OCCASIONAL (NONE-FEW) Urine Bacteria RARE (NEGATIVE) Urine Mucus LIGHT (NONE-MOD) Influenza Type A RNA (NEGATIVE) Influenza Type B RNA (NEGATIVE) SARS-CoV-2 RNA (TIFFANIE) (NEGATIVE) Meds: Medications Discontinued Medications Generic Name Dose Route Start Last Admin Trade Name Freq PRN Reason Stop Dose Admin Sodium Chloride 1,000 mls @ 999 mls/hr 10/28/21 09:51 10/28/21 09:52 Normal Saline IV 10/28/21 10:51 999 mls/hr .Bolus ONE Administration Ketorolac Tromethamine 30 mg 10/28/21 09:51 10/28/21 09:54 Ketorolac 30 Mg/Ml Sdv IVPUSH 10/28/21 09:52 30 mg ONETIME ONE Administration Ondansetron HCl 4 mg 10/28/21 09:51 10/28/21 09:54 Ondansetron 4 Mg/2 Ml Sdv IVPUSH 10/28/21 09:52 4 mg ONETIME ONE Administration - Re-Assessments/Exams Free Text/Narrative Re-Assessment/Exam: 10/28/21 09:54 Patient symptoms are suggestive of renal stone. Will get appropriate labs, urinalysis, CT imaging of the abdomen and pelvis. We have 1 L fluid bolus with Toradol and Zofran. Will get Covid and influenza testing. 10/28/21 11:06 CT imaging is remarkable for 3 mm left UVJ stone with mild hydronephrosis. We will follow up urinalysis to ensure no con commitment urinary tract infection and disposition patient accordingly. 10/28/21 11:59 Urine does not show evidence of UTI. Will discharge with Motrin, Percocet, Flomax, urology follow-up. Departure - Departure Time of Disposition: 12:00 Disposition: Home, Self-Care 01 Condition: Good Clinical Impression: Renal stone - Discharge Information Prescriptions: Tamsulosin HCl [Flomax] 0.4 mg PO DAILY #7 cap.er.24h Ibuprofen [Motrin] 600 mg PO Q6H PRN #30 tab PRN Reason: Pain Acetaminophen/oxyCODONE [Percocet 325-5 MG] 1 each PO Q6H PRN #12 tab PRN Reason: Pain Instructions: Kidney Stones Referrals: Tereso Case Jr, PA-C [Primary Care Provider] - Forms: ED Department Discharge Additional Instructions: Your CT scan shows a 3 mm kidney stone. This is very likely to pass on its own, however, require procedures to help him come out. Information is provided below for urology follow-up. I have sent medications to [facility]. [facility] [place]: [phone] [facility] [place]: [phone] The following information is given to patients seen in the emergency department who are being discharged to home. This information is to outline your options for follow-up care. We provide all patients seen in our emergency department with a follow-up referral. The need for follow-up, as well as the timing and circumstances, are variable depending upon the specifics of your emergency department visit. If you don't have a primary care physician on staff, we will provide you with a referral. We always advise you to contact your personal physician following an emergency department visit to inform them of the circumstance of the visit and for follow-up with them and/or the need for any referrals to a consulting specialist. The emergency department will also refer you to a specialist when appropriate. This referral assures that you have the opportunity for follow-up care with a specialist. All of these measure are taken in an effort to provide you with opti mal care, which includes your follow-up. Under all circumstances we always encourage you to contact your private physician who remains a resource for coordinating your care. When calling for follow-up care, please make the office aware that this follow-up is from your recent emergency room visit. If for any reason you are refused follow-up, please contact the [facility] Emergency Department at and asked to speak to the emergency department charge nurse. Please follow up with your primary care physician. If you do not have a primary care physician, see below: [facility] [address], [place] [id number] [facility] [address] [place] [address] [facility] [address], [place] [address] Sepsis Event Note (ED) - Evaluation Sepsis Screening Result: No Definite Risk - Focused Exam Vital Signs: Vital Signs Temp Pulse Resp BP Pulse Ox 10/28/21 09:43 97.9 F 84 20 158/102 H 97 - My Orders Last 24 Hours: My Active Orders 10/28/21 09:51 Saline Lock Insert [OM.PC] Stat - Assessment/Plan Last 24 Hours: My Active Orders 10/28/21 09:51 Saline Lock Insert [OM.PC] Stat
[2021-10-28] MEDS ORDERED: Sodium Chloride 0.9% 1,000 ML IV ONE (09:51)
[2021-10-28] MEDS ORDERED: Ondansetron 4 MG/2 ML SDV IVPUSH ONE (09:51)
[2021-10-28] MEDS ORDERED: Ketorolac 30 MG/ML SDV IVPUSH ONE (09:51)
[2021-10-28 10:10] LABS: CARBON DIOXIDE,CO2 29.1 mmol/L (21.0-32.0); POTASSIUM,K 4.4 mmol/L (3.5-5.1)
[2021-10-28 10:37] LABS: CORONAVIRUS COVID-19 NAA NEGATIVE (NEGATIVE); INFLUENZA A NAA NEGATIVE (NEGATIVE); INFLUENZA B NAA NEGATIVE (NEGATIVE)
--- NOTE | 2021-10-28 10:58 | CT ---
Indication: Left flank pain Technique: Noncontrast CT abdomen and pelvis Comparison: CT abdomen pelvis 05/08/2021 Findings: Heart size is normal. There is no pericardial effusion. Lung bases are clear. Fatty liver. Gallbladder pancreas spleen adrenal glands unremarkable. No renal calculi. 3 millimeter stone left UVJ with mild left hydronephrosis. Right kidney unremarkable. Normal caliber abdominal aorta. Adjacent fat containing umbilical and paraumbilical hernia. Appendectomy. Diverticulosis. Bowel appears unremarkable. No suspicious bony lesions are seen. Impression: 1. Mild left hydronephrosis and hydroureter with 3 millimeter left UVJ stone. 2. Fatty liver. Please note that all CT scans at this facility use dose modulation, iterative reconstruction, and/or weight-based dosing when appropriate to reduce radiation dose to as low as reasonably achievable. Dictated by Debbie Faustin MD @ 10/28/2021 10:56:46 AM (Electronically Signed)
== END 2021-10-28 12:12 | disposition home or self-care (01) ==
LOC: MW.ED 09:36
DX: N13.2 Hydronephrosis with renal and ureteral calculous obstruction (principal); E66.9 Obesity, unspecified; Z68.42 Body mass index [BMI] 45.0-49.9, adult; Z88.5 Allergy status to narcotic agent; Z20.822 Contact with and (suspected) exposure to COVID-19
CPT/HCPCS: 0240U; 36415; 74176; 80048; 81001; 85025; 96374; 96375; 99284; J1885; J2405; J7030